=== PATIENT | female | born 1945 | race Caucasian/White ===

== ENCOUNTER → 2016-06-22 | Outpatient (CLI) | payer MEDICARE, BC ==
--- NOTE | 2016-06-22 11:54 | MM ---
Reason for exam: history of breast cancer, conservation therapy. Last mammogram was performed 8 months ago. History: Patient is postmenopausal, has history of breast cancer at age 56, and is nulliparous. Malignant lumpectomy of the right breast, April 26, 2002. Malignant ultrasound-guided core biopsy of the right breast, April 12, 2002. Core biopsy of the right breast. Excisional biopsy of the left breast. Lumpectomy of the left breast. Chemotherapy. Radiation therapy of the left breast. Radiation therapy of the right breast. Took estrogen for 4 years beginning at age 49. Took antineoplastic for 5 years beginning at age 56. Physical Findings: Nurse did not find any significant physical abnormalities on exam. MG 3D Diag Mammo W/Cad AVERY Bilateral CC and MLO view(s) were taken. Prior study comparison: October 22, 2015, left breast MG 3d diag mammo w/cad LT. April 21, 2015, bilateral MG 3d diag mammo w/cad AVERY. The breast tissue is heterogeneously dense. This may lower the sensitivity of mammography. Finding: Architectural distortion in both breasts consistent with known neoplasm/excisional biopsy x 2. These results were verbally communicated with the patient and result sheet given to the patient on 06/22/16. ASSESSMENT: Benign, BI-RAD 2 RECOMMENDATION: Follow-up diagnostic mammogram of both breasts in 1 year.
== END | disposition home or self-care (01) ==
LOC: RADMAMWWP 11:02
PROVIDERS: ATTEND Internal Medicine Geriatric Medicine
DX: R92.2 Inconclusive mammogram (principal)
CPT/HCPCS: G0204; G0279

== ENCOUNTER → 2016-10-03 | Outpatient (CLI) | payer MEDICARE, BC ==
--- NOTE | 2016-10-03 14:38 | MR ---
EXAMINATION TYPE: MR shoulder LT wo con DATE OF EXAM: 10/03/2016 10:22 AM COMPARISON: NONE HISTORY: Left shoulder pain TECHNIQUE: Multiplanar, multisequence imaging of the left shoulder is performed without contrast. FINDINGS: Rotator Cuff: There is fluid signal in the subacromial subdeltoid bursa. Distal acromial spur is pres ent with mass effect on the rotator cuff. Rotator cuff shows increased signal and is attenuated perip herally. Partial full-thickness tear is suspected. Acromioclavicular Joint: Hypertrophic changes present causing some mass effect on the musculotendinou s junction of supraspinatus. Glenohumeral Joint: Intact. Labrum: The labrum appears grossly intact given limitation of non-arthrogram study. Biceps Tendon: The long head of biceps is in normal location within bicipital groove. Bone marrow signal: Small pseudocysts are present within the humeral head. Other: No additional significant abnormality is appreciated. IMPRESSION: Findings suggestive of a partial full-thickness tear of the rotator cuff. Tendinosis changes are pres ent peripherally, correlate for impingement.
== END | disposition home or self-care (01) ==
LOC: RADMRIMAIN 09:41
PROVIDERS: ATTEND Internal Medicine Geriatric Medicine
DX: M67.814 Other specified disorders of tendon, left shoulder (principal); S46.092A Other injury of muscle(s) and tendon(s) of the rotator cuff of left shoulder, initial encounter; Z79.82 Long term (current) use of aspirin

== ENCOUNTER 2016-11-01 08:06 | Day surgery (SDC) | payer MEDICARE, BC ==
[2016-10-25 11:28] VITALS: BMI 26.2
[~2016-11-01 08:06] MED LIST: DEXAMETHASONE SOD PHOSPHATE 10 MG/ML 1 ML VIAL IV ONE; HYDROmorphone 1 MG/ML 1 ML SYRINGE IVP PRN; LACTATED RINGERS 1,000 ML IV SCH; MIDAZOLAM 2 MG/2 ML VIAL IV PRN; ONDANSETRON 4 MG/2 ML VIAL IVP ONE; ceFAZolin 2 GM in SODIUM CHLORIDE 0.9% 100 ML IVPB ONE
[2016-11-01] MEDS ORDERED: LIDOCAINE 1% 20 ML VIAL (10MG/ML) FOR IV START INTRADERMA ONE (08:17)
[2016-11-01] MEDS ORDERED: PROPOFOL 10 MG/ML 20 ML VIAL IV ONE (08:58)
[2016-11-01] MEDS ORDERED: MIDAZOLAM 2 MG/2 ML VIAL ONE (08:58)
[2016-11-01] MEDS ORDERED: LIDOCAINE 1% INJ 10MG/ML (20 ML MDV) ONE (08:58)
[2016-11-01] MEDS ORDERED: LIDOCAINE 2%-EPI 1:100,000 20 ML VIAL ONE (08:58)
[2016-11-01] MEDS ORDERED: ROPIVACAINE 5 MG/ML 30 ML VIAL ONE (08:58)
[2016-11-01] MEDS ORDERED: fentaNYL (PF) 50 MCG/ML 2 ML AMP ONE (08:58)
[2016-11-01] MEDS ORDERED: ePHEDrine 50 MG/ML 1 ML AMP ONE (08:58)
[2016-11-01] MEDS ORDERED: ceFAZolin 1,000 MG in SODIUM CHLORIDE 0.9% 1,000 ML IRRIGATION ONE (10:10)
[2016-11-01] MEDS ORDERED: HYDROmorphone 1 MG/ML 1 ML SYRINGE IVP PRN ×2 (10:29)
[2016-11-01] MEDS ORDERED: SENNOSIDES-DOCUSATE SODIUM 1 EACH TAB PO PRN (10:29)
[2016-11-01] MEDS ORDERED: HYDROcodone/APAP 5-325MG 1 EACH TAB PO PRN (10:29)
[2016-11-01] MEDS ORDERED: ONDANSETRON 4 MG/2 ML VIAL IVP PRN (10:29)
[2016-11-01] MEDS ORDERED: TEMAZEPAM 15 MG CAP PO PRN (10:29)
[2016-11-01] MEDS ORDERED: LACTATED RINGERS 1,000 ML IV SCH (10:30)
[2016-11-01] MEDS ORDERED: SODIUM CHLORIDE 0.9% 500 ML IV ONE ×2 (13:47→15:29)
[2016-11-01] MEDS: ceFAZolin 2 GM in SODIUM CHLORIDE 0.9% 100 ML IVPB SCH ×2 (17:50→23:48)
[2016-11-01] MEDS: SODIUM CHLORIDE 0.9% 1,000 ML IV SCH (17:50)
--- NOTE | 2016-11-01 18:08 | P.CONS ---
History of Present Illness - Reason for Consult Consult date: 11/01/16 Medical management Requesting physician: Cornelius Garcia - Chief Complaint Post left shoulder rotator cuff tear repair, CAD, breast cancer, hypertensi - History of Present Illness 71-year-old female one of my office patient of known for long time with history of bilateral breast cancer post lumpectomy radiation and chemotherapy, history of CAD post angioplasty and stent placement in the past, history of hypertension, hyperlipidemia, lichen plantus who had left shoulder injury few months ago had failed conservative management and physical therapy injection and such. Patient was seen Dr. Garcia and schedule elective left shoulder rotator cuff tear repair which was done today successfully she was admitted to the floor had shoulder sling her medication were resume his stable hemodynamically and pain is under control. Review of Systems Constitutional: Reports fatigue, Denies as per HPI, Denies anorexia, Denies chills, Denies chronic headaches, Denies chronic pain, Denies daytime sleepiness , Denies fever, Denies lethargy, Denies malaise, Denies night sweats, Denies poor appetite, Denies sweats, Denies weakness, Denies weight gain, Denies weight loss Eyes: bilateral as per HPI Ears: bilateral: decreased hearing Ears, nose, mouth and throat: Reports nasal congestion, Reports sinus pain, Reports sinus pressure, Denies as per HPI, Denies ant. neck pain, Denies bleeding gums, Denies dental pain, Denies dysphagia, Denies epistaxis, Denies headache, Denies hoarseness, Denies mouth pain, Denies nasal discharge, Denies neck fullness/pressure, Denies neck lump, Denies nose pain, Denies odynophagia, Denies post-nasal drip, Denies swelling in mouth, Denies swelling in throat, Denies sore throat, Denies vertigo, Denies voice changes Cardiovascular: Reports edema, Reports high blood pressure, Reports leg edema, Reports palpitations, Denies as per HPI, Denies chest pain, Denies claudication , Denies decreased exercise tolerance, Denies dyspnea on exertion, Denies irregular heart beat, Denies lightheadedness, Denies orthopnea, Denies paroxysmal nocturnal dyspnea, Denies phlebitis, Denies rapid heart beat, Denies shortness of breath, Denies syncope Respiratory: Reports congestion, Reports cough, Denies as per HPI, Denies cough with sputum, Denies dyspnea, Denies excessive sputum, Denies hemoptysis, Denies home oxygen, Denies pain, Denies pain on inspiration, Denies pleurisy, Denies respiratory infections, Denies sleep apnea, Denies snoring, Denies wheezing Gastrointestinal: Reports bloating, Reports early satiety, Reports indigestion, Reports nausea, Denies as per HPI, Denies abdominal pain, Denies belching, Denies BRBPR, Denies change in bowel habits, Denies coffee ground emesis, Denies constipation, Denies diarrhea, Denies dyspepsia, Denies excessive gas, Denies heartburn, Denies hematemesis, Denies hematochezia, Denies jaundice, Denies lactose intolerance, Denies loss of appetite, Denies melena, Denies vomiting Genitourinary: Reports urgency, Reports urinary frequency, Denies as per HPI, Denies abnormal vaginal bleeding, Denies decreased libido, Denies difficulty conceiving, Denies difficulty voiding, Denies dysmenorrhea, Denies dyspareunia, Denies dysuria, Denies flank pain, Denies genital sores, Denies hematuria, Denies hot flashes, Denies incomplete emptying, Denies kidney stones, Denies menorrhagia, Denies mixed incontinence, Denies nocturia, Denies pelvic pain, Denies post void dribbling, Denies , Denies prolapse symptoms, Denies stress incontinence, Denies urge incontinence, Denies vaginal discharge, Denies vaginal dryness, Denies vaginal itching, Denies vaginal odor Musculoskeletal: Reports arm numbness/tingling, Reports low back pain, Reports myalgias, Reports neck pain, Denies as per HPI, Denies atrophy, Denies fractures , Denies frequent falls, Denies gait dysfunction, Denies hot joints, Denies leg numbness/tingling, Denies limitation of motion, Denies loss of height, Denies morning stiffness, Denies muscle cramps, Denies muscle weakness, Denies neck stiffness, Denies prior amputations, Denies redness of joints, Denies shooting arm pain, Denies shooting leg pain Musculoskeletal: left: shoulder pain Integumentary: Reports pruritus, Reports rash, Denies as per HPI, Denies acne, Denies boils, Denies brittle nails, Denies change in hair/nails, Denies color changes, Denies darkening of skin, Denies depigmentation, Denies dryness, Denies foot/leg ulcers, Denies growths, Denies hirsutism, Denies lesions, Denies onychomycosis, Denies sores, Denies striae, Denies unusual bruising, Denies wounds Neurological: Denies as per HPI, Denies aphasia, Denies ataxia, Denies balance difficulties, Denies burning pain, Denies change in mentation, Denies change in smell/taste, Denies change in speech, Denies confusion, Denies convulsions, Denies double vision, Denies gait dysfunction, Denies head injury, Denies headaches, Denies hearing difficulties, Denies lack of coordination, Denies loss of vision, Denies memory loss, Denies migraines, Denies motor disturbance, Denies numbness, Denies paralysis, Denies paresthesias, Denies seizures, Denies sensory deficit, Denies spasticity, Denies syncope, Denies tic, Denies tingling , Denies transient paralysis, Denies tremors, Denies vertigo, Denies weakness, Denies visual changes Psychiatric: Reports anxiety, Reports depression, Reports difficulty concentrating, Denies as per HPI, Denies anhedonia, Denies anxiety attacks, Denies change in appetite, Denies change in libido, Denies change in sleep habits, Denies confusion, Denies disorientation, Denies hallucinations, Denies hopelessness, Denies hypersomnia, Denies insomnia, Denies irritability, Denies memory loss, Denies mood swings, Denies paranoia, Denies sleep disturbances, Denies suicidal ideation Endocrine: Reports nocturia, Reports polyuria, Reports proptosis, Denies as per HPI, Denies cold intolerance, Denies deepening of the voice, Denies excessive sweating, Denies excessive thirst, Denies fatigue, Denies flushing, Denies heat intolerance, Denies high blood sugars, Denies increase in ring/shoe/hat size, Denies low blood sugars, Denies palpitations, Denies polydipsia, Denies polyphagia, Denies recent glucocorticoid use, Denies thyroid mass, Denies weight change Hematologic/Lymphatic: Denies as per HPI, Denies easy bleeding, Denies easy bruising, Denies lymphadenopathy, Denies lymphedema, Denies thrombophilia Allergic/Immunologic: Reports allergic rhinitis, Denies as per HPI, Denies anaphylaxis, Denies angioedema, Denies gluten intolerance, Denies persistent infections, Denies seasonal allergies, Denies urticaria, Denies wheezing Past Medical History Past Medical History: Cancer, Hyperlipidemia, Hypertension, Osteoarthritis (OA) , Skin Disorder Additional Past Medical History / Comment(s): lichen planus, breast cancer x 2 History of Any Multi-Drug Resistant Organisms: MRSA Year Discovered:: 2011 MDRO Source:: genitals Past Surgical History: Breast Surgery, Heart Catheterization With Stent, Tonsillectomy Additional Past Surgical History / Comment(s): left breast lumpectomy, rt breast lumpectomy, [place] cataracts Past Anesthesia/Blood Transfusion Reactions: Motion Sickness Additional Past Anesthesia/Blood Transfusion Reaction / Comm: vertigo on and off Date of Last Stent Placement:: 2012 Past Psychological History: No Psychological Hx Reported Smoking Status: Former smoker Past Alcohol Use History: Rare Additional Past Alcohol Use History / Comment(s): quit smoking 15 yrs ago, smoked for 45 yrs, 1 PPD Past Drug Use History: None Reported - Past Family History Father Family Medical History: Cancer Brother(s) Family Medical History: Cancer Sister(s) Family Medical History: Cancer Medications and Allergies Home Medications Medication Instructions Recorded Confirmed Type ALPRAZolam [Xanax] 0.25 mg PO HS 10/25/16 11/01/16 History Acetaminophen 1,000 mg PO BID 10/25/16 11/01/16 History Aspirin [Adult Low Dose Aspirin EC] 81 mg PO DAILY 10/25/16 11/01/16 History Baclofen 10 mg PO HS 10/25/16 11/01/16 History Candesartan Cilexetil [Atacand] 32 mg PO DAILY 10/25/16 11/01/16 History Carboxymethylcellulose Sodium 1 drop BOTH EYES BID PRN 10/25/16 11/01/16 History [Refresh Tears] Citalopram Hydrobromide 20 mg PO DAILY 10/25/16 11/01/16 History [Citalopram HBr] Ezetimibe [Zetia] 10 mg PO HS 10/25/16 11/01/16 History Multivitamins, Thera [Multivitamin 1 tab PO DAILY 10/25/16 11/01/16 History (formulary)] Omeprazole [PriLOSEC] 40 mg PO DAILY 10/25/16 11/01/16 History Simvastatin [Zocor] 40 mg PO Q48H 10/25/16 11/01/16 History Ubidecarenone [Co Q-10] 100 mg PO DAILY 10/25/16 11/01/16 History Vitamin E (Dl,Tocopheryl Acet) 400 unit PO DAILY 10/25/16 11/01/16 History [Vitamin E] amLODIPine [Norvasc] 10 mg PO DAILY 10/25/16 11/01/16 History traZODone HCL 50 mg PO HS 10/25/16 11/01/16 History Allergies Allergy/AdvReac Type Severity Reaction Status Date / Time No Known Allergies Allergy Verified 11/01/16 08:09 Physical Exam Vitals: Vital Signs Temp Pulse Pulse Resp BP BP Pulse Ox 11/01/16 11:08 82 16 102/54 95 11/01/16 10:53 79 16 100/49 94 L 11/01/16 10:38 82 16 108/58 95 11/01/16 10:23 97 F L 93 16 159/68 94 L 11/01/16 08:16 97.8 F 62 16 127/64 93 L Intake and Output 10/31/16 11/01/16 11/01/16 22:59 06:59 14:59 Intake Total 1151 Output Total 5 Balance 1146 Intake: IV 1151 Output: Estimated Blood Loss 5 Other: Voiding Method Toilet # Voids 1 - Constitutional General appearance: no average body habitus, no cooperative, disheveled, no mild distress, no morbidly obese, no acute distress, no obese, no severe distress, no thin - EENT Eyes: no abnormal pupil, no anicteric sclerae, no disc margins sharp, no edentulous, no EOMI, no PERRLA, no fundus normal, no photophobia, no dentition normal, no poor dentition, no ptosis, no scleral icterus, normal appearance ENT: no hard of hearing, no hearing grossly normal, no NA/AT, normal oropharynx , no other, no pharyngeal erythema, no thrush, no tonsillar exudates, no tonsillar swelling Ears: bilateral: normal - Neck Neck: no lymphadenopathy, normal ROM, no other, no rigidity, no stridor, no thyromegaly Carotids: bilateral: upstroke normal Thyroid: bilateral: normal size - Respiratory Respiratory: bilateral: CTA - Cardiovascular Rhythm: regular Heart sounds: normal: S1, S2 Abnormal Heart Sounds: systolic murmur - Gastrointestinal General gastrointestinal: no absent bowel sounds, no decreased bowel sounds, no distended, no hepatomegaly, no hyperactive bowel sounds, normal bowel sounds, no organomegaly, no rigid, no scaphoid, soft, no splenomegaly, no tenderness, no umbilical hernia, no ventral hernia - Integumentary Integumentary: no calor, no cellulitis, no cyanotic, no decreased turgor, no flushed, no jaundiced, normal, no normal turgor, pale, no rash, no ulcer - Neurologic Neurologic: CNII-XII intact - Musculoskeletal Musculoskeletal: gait normal, generalized weakness - Psychiatric Psychiatric: A&O x's 3, appropriate affect Assessment and Plan Plan: 1 post left shoulder rotator cuff tear repair: Patient is stable medically resume home meds will watch patient with dynamic status, watch her urine output. 2 CAD no chest pain or angina has been doing well with current medication continue Zocor amlodipine and Atacand. 3 Hyperlipidemia: Has been on Zocor 40 mg a day and Zetia 10 mg daily. 4 History of breast cancer bilateral has been in remission in the last few years. 5 hypertension: Continue Atacand and amlodipine. 6 Chronic depression: Has been on Cipro and Lupron 20 mg daily. 7 insomnia: Has been on trazodone 50 mg daily at bedtime. 8 GERD/GI prophylaxis: Patient has been on omeprazole 40 mg daily. 9 DVT prophylaxis: Patient will continue Venodyne boots and knee-high INESSA hose along with early mobilization. CODE STATUS: Full code. Next Dr. Garcia thank you much for the consult if I can be any further help to please let me know.
[2016-11-01] MEDS ORDERED: ACETAMINOPHEN TAB 500 MG TAB PO PRN (20:39)
[2016-11-01] MEDS ORDERED: ARTIFICIAL TEARS-HYPROMELLOSE DROPS 15 ML BTL BOTH EYES PRN (20:39)
[2016-11-01] MEDS ORDERED: EZETIMIBE 10 MG TAB PO SCH (21:00)
[2016-11-01] MEDS ORDERED: BACLOFEN 10 MG TAB PO SCH (21:00)
[2016-11-01] MEDS ORDERED: traZODone HCL 50 MG TAB PO SCH (21:00)
[2016-11-01] MEDS ORDERED: ALPRAZolam 0.25 MG TAB PO SCH (21:00)
[2016-11-01] MEDS: HYDROcodone/APAP 5-325MG 1 EACH TAB PO PRN (21:27)
[2016-11-01] MEDS: hydrOXYzine PAMOATE 25 MG CAP PO PRN (21:27)
[2016-11-01] MEDS: HYDROmorphone 1 MG/ML 1 ML SYRINGE IVP PRN (23:47)
[2016-11-02] MEDS: SODIUM CHLORIDE 0.9% 1,000 ML IV SCH (03:54)
[2016-11-02] MEDS: HYDROmorphone 1 MG/ML 1 ML SYRINGE IVP PRN (03:55)
[2016-11-02] MEDS: HYDROcodone/APAP 5-325MG 1 EACH TAB PO PRN ×2 (05:42→11:41)
[2016-11-02] MEDS: hydrOXYzine PAMOATE 25 MG CAP PO PRN (05:42)
[2016-11-02] MEDS ORDERED: PANTOPRAZOLE 40 MG TABLET PO SCH (07:30)
[2016-11-02 07:32] VITALS: RESP 17
--- NOTE | 2016-11-02 08:26 | P.DS ---
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 The patient presented to the orthopedic office for evaluation. After discussion and consideration patient elects to proceed with a rotator cuff repair. The patient is seen preoperatively by her primary care doctor and cleared for surgery. Patient is admitted to observation at [facility] on 11/01/2016 for left shoulder rotator cuff repair with distal clavicle excision and acromioplasty. The procedures performed without complication or sequelae. The patient is doing well postoperatively. Labs and vital signs are stable on day of discharge. On day of discharge patient's shoulder incision is healing well. There is minimal erythema. There is no drainage noted at this time. There is minimal soft tissue swelling to the right upper extremity. Patient has full hand, wrist , and elbow motion without difficulty or pain. Neurovascular status to the left upper extremity is intact. Patient is discharged to home in good condition. Patient Condition at Discharge: Stable Plan - Discharge Summary New Discharge Prescriptions: New Cephalexin [Keflex] 500 mg PO Q8HR #15 cap HYDROcodone/APAP 7.5-325MG [[employer] 7.5-325] 1 - 2 tab PO Q4-6H PRN #90 tab PRN Reason: Pain Sennosides-Docusate Sodium [Senokot-S] 2 tab PO DAILY #30 tablet No Action Vitamin E (Dl,Tocopheryl Acet) [Vitamin E] 400 unit PO DAILY Ubidecarenone [Co Q-10] 100 mg PO DAILY Multivitamins, Thera [Multivitamin (formulary)] 1 tab PO DAILY Aspirin [Adult Low Dose Aspirin EC] 81 mg PO DAILY traZODone HCL 50 mg PO HS Ezetimibe [Zetia] 10 mg PO HS Simvastatin [Zocor] 40 mg PO Q48H Omeprazole [PriLOSEC] 40 mg PO DAILY Carboxymethylcellulose Sodium [Refresh Tears] 1 drop BOTH EYES BID PRN PRN Reason: dry eyes Citalopram Hydrobromide [Citalopram HBr] 20 mg PO DAILY Candesartan Cilexetil [Atacand] 32 mg PO DAILY amLODIPine [Norvasc] 10 mg PO DAILY Baclofen 10 mg PO HS ALPRAZolam [Xanax] 0.25 mg PO HS Acetaminophen 1,000 mg PO BID Discharge Medication List ALPRAZolam [Xanax] 0.25 mg PO HS 10/25/16 [History] Acetaminophen 1,000 mg PO BID 10/25/16 [History] Aspirin [Adult Low Dose Aspirin EC] 81 mg PO DAILY 10/25/16 [History] Baclofen 10 mg PO HS 10/25/16 [History] Candesartan Cilexetil [Atacand] 32 mg PO DAILY 10/25/16 [History] Carboxymethylcellulose Sodium [Refresh Tears] 1 drop BOTH EYES BID PRN 10/25/16 [History] Citalopram Hydrobromide [Citalopram HBr] 20 mg PO DAILY 10/25/16 [History] Ezetimibe [Zetia] 10 mg PO HS 10/25/16 [History] Multivitamins, Thera [Multivitamin (formulary)] 1 tab PO DAILY 10/25/16 [History ] Omeprazole [PriLOSEC] 40 mg PO DAILY 10/25/16 [History] Simvastatin [Zocor] 40 mg PO Q48H 10/25/16 [History] Ubidecarenone [Co Q-10] 100 mg PO DAILY 10/25/16 [History] Vitamin E (Dl,Tocopheryl Acet) [Vitamin E] 400 unit PO DAILY 10/25/16 [History] amLODIPine [Norvasc] 10 mg PO DAILY 10/25/16 [History] traZODone HCL 50 mg PO HS 10/25/16 [History] Cephalexin [Keflex] 500 mg PO Q8HR #15 cap 11/01/16 [Rx] HYDROcodone/APAP 7.5-325MG [[employer] 7.5-325] 1 - 2 tab PO Q4-6H PRN #90 tab [Rx] Sennosides-Docusate Sodium [Senokot-S] 2 tab PO DAILY #30 tablet 11/01/16 [Rx] Follow up Appointment(s)/Referral(s): Cornelius Garcia DO [Doctor of Osteopathic Medicine] - 2 Weeks Activity/Diet/Wound Care/Special Instructions: Keep incision clean and dry Change dressing daily May shower in 3 days if no drainage from incision Keep arm sling/abductor pillow in place except when bathing Follow up with Dr. Garcia in 2 weeks. Call [facility] with any questions or concerns. [phone] Discharge Disposition: HOME SELF-CARE
[2016-11-02] MEDS ORDERED: ASPIRIN 81 MG CHEW PO SCH (09:00)
[2016-11-02] MEDS ORDERED: amLODIPine 10 MG TAB PO SCH (09:00)
[2016-11-02] MEDS ORDERED: MULTIVITAMINS, THERA 1 EACH TAB PO SCH (09:00)
[2016-11-02] MEDS ORDERED: CITALOPRAM HYDROBROMIDE 20 MG TAB PO SCH (09:00)
[2016-11-02] MEDS ORDERED: ATORVASTATIN 20 MG TAB PO SCH (09:00)
[2016-11-02] MEDS ORDERED: LOSARTAN 50 MG TAB PO SCH (09:00)
[2016-11-02] MEDS ORDERED: NON-FORMULARY DRUG (Ubidecarenone [Co Q-10] 100 MG) PO SCH (09:00)
[2016-11-02 11:43] VITALS: BP 104/55; PULSE 60; TEMP 97.9
--- NOTE | 2016-11-02 14:48 | P.PN ---
Subjective 71-year-old female one of my office patient of known for long time with history of bilateral breast cancer post lumpectomy radiation and chemotherapy, history of CAD post angioplasty and stent placement in the past, history of hypertension, hyperlipidemia, lichen plantus who had left shoulder injury few months ago had failed conservative management and physical therapy injection and such. Patient was seen Dr. Garcia and schedule elective left shoulder rotator cuff tear repair which was done today successfully she was admitted to the floor had shoulder sling her medication were resume his stable hemodynamically and pain is under control. 11/02: Patient is being prepared for discharge home today in stable condition. She has had no postop complications. Objective - Vital Signs Vital signs: Vital Signs Temp 97.9 F 11/02/16 11:42 Pulse 60 11/02/16 11:42 Resp 17 11/02/16 07:00 BP 104/55 11/02/16 11:42 Pulse Ox 93 L 11/02/16 11:42 Intake & Output 11/01/16 11/02/16 11/02/16 18:59 06:59 18:59 Intake Total 1851 1000 600 Output Total 1505 Balance 346 1000 600 Intake: IV 1151 Intake, IV Titration 700 800 Amount Lactated Ringers 1,000 ml 200 @ 100 mls/hr IV .Q10H CAROLIN Rx#:[id number] Sodium Chloride 0.9% 1, 800 000 ml @ 100 mls/hr IV . Q10H CAROLIN Rx#:[id number] Sodium Chloride 0.9% 500 500 ml @ 999 mls/hr IV .Q31M ONE Rx#:[id number] Oral 200 600 Output: Urine 1500 Estimated Blood Loss 5 Other: Voiding Method Toilet Toilet Toilet # Voids 2 2 1 - Exam General appearance: no average body habitus, no cooperative, disheveled, no mild distress, no morbidly obese, no acute distress, no obese, no severe distress, no thin - EENT Eyes: no abnormal pupil, no anicteric sclerae, no disc margins sharp, no edentulous, no EOMI, no PERRLA, no fundus normal, no photophobia, no dentition normal, no poor dentition, no ptosis, no scleral icterus, normal appearance ENT: no hard of hearing, no hearing grossly normal, no NA/AT, normal oropharynx , no other, no pharyngeal erythema, no thrush, no tonsillar exudates, no tonsillar swelling Ears: bilateral: normal - Neck Neck: no lymphadenopathy, normal ROM, no other, no rigidity, no stridor, no thyromegaly Carotids: bilateral: upstroke normal Thyroid: bilateral: normal size - Respiratory Respiratory: bilateral: CTA - Cardiovascular Rhythm: regular Heart sounds: normal: S1, S2 Abnormal Heart Sounds: systolic murmur - Gastrointestinal General gastrointestinal: no absent bowel sounds, no decreased bowel sounds, no distended, no hepatomegaly, no hyperactive bowel sounds, normal bowel sounds, no organomegaly, no rigid, no scaphoid, soft, no splenomegaly, no tenderness, no umbilical hernia, no ventral hernia - Integumentary Integumentary: no calor, no cellulitis, no cyanotic, no decreased turgor, no flushed, no jaundiced, normal, no normal turgor, pale, no rash, no ulcer - Neurologic Neurologic: CNII-XII intact - Musculoskeletal Musculoskeletal: gait normal, generalized weakness - Psychiatric Psychiatric: A&O x's 3, appropriate affect Assessment and Plan Plan: 1 post left shoulder rotator cuff tear repair: Patient is stable medically resume home meds will watch patient with dynamic status, watch her urine output. 2 CAD no chest pain or angina has been doing well with current medication continue Zocor amlodipine and Atacand. 3 Hyperlipidemia: Has been on Zocor 40 mg a day and Zetia 10 mg daily. 4 History of breast cancer bilateral has been in remission in the last few years. 5 hypertension: Continue Atacand and amlodipine. 6 Chronic depression: Has been on Cipro and Lupron 20 mg daily. 7 insomnia: Has been on trazodone 50 mg daily at bedtime. 8 GERD/GI prophylaxis: Patient has been on omeprazole 40 mg daily. 9 DVT prophylaxis: Patient will continue Venodyne boots and knee-high INESSA hose along with early mobilization. CODE STATUS: Full code. Discharge plan: Return home Impression and plan of care have been directed as dictated by the signing physician. Masha Smith nurse practitioner acting as scribe for signing physician.
--- NOTE | 2016-11-03 20:08 | OP ---
DATE OF SERVICE: 11/01/2016 SURGEON: MARKIE MUÑOZ DO BLACK TOP SPREADER MACHINE OPERATOR: Sarah Judd PA-C PREOPERATIVE DIAGNOSIS: Adhesive capsulitis, left shoulder, with rotator cuff tear. POSTOPERATIVE DIAGNOSIS: Adhesive capsulitis, left shoulder, with rotator cuff tear. OPERATION: Resection distal left clavicle, decompression acromioplasty, and rotator cuff repair. ANESTHESIA: ESTIMATED BLOOD LOSS: SPECIMENS REMOVED: COMPLICATIONS: OPERATIVE FINDINGS: DESCRIPTION OF PROCEDURE: Patient was taken to the operative suite, placed in supine position. Regional blocking anesthesia was performed by Department of Anesthesia. The patient was placed in beach chair position, appropriately padded and secured. A Betadine prep was carried out. Sterile drapes were applied in the usual manner. The shoulder was then taken through a gentle range of motion. Anterolateral incision was developed over the acromion. Sharp dissection was carried out through the subcutaneous tissue. The superior acromioclavicular ligament was identified and dissected. Additional 1 cm of clavicle was excised with a bone saw. The anterior deltoid muscle was dissected along the musculotendinous junction. The coracoacromial ligament was identified and dissected. An anterolateral decompression acromioplasty was performed. The acromion was shaped with a bone saw. The Arthrex anchor screw was then prepared with bone awl for positioning and the bone tapped. Fiber Nazario utilized in repairing the rotator cuff. Area was irrigated copiously. The deltoid was then reapproximated back into the acromion with #1 Ethibond suture. The deep fascia was approximated with #1 Vicryl suture in running fashion. The subcutaneous tissue was reapproximated with 3-0 Vicryl suture in interrupted fashion. Skin was approximated with 3-0 Quill in subcuticular fashion. The incision was sealed with Dermabond. Sterile dressing was applied. Patient was placed in an abduction pillow splint. She was transferred to the recovery room in satisfactory postoperative condition. GROSS PATHOLOGY: There was evidence of rotator cuff impingement with rotator cuff tear. [facility]
== END 2016-11-02 14:37 | disposition home or self-care (01) ==
LOC: OR 08:06 → 3SUR 10:19 → OR 11-02 14:37
PROVIDERS: ATTEND Orthopaedic Surgery
DX: M75.102 Unspecified rotator cuff tear or rupture of left shoulder, not specified as traumatic (principal); M75.02 Adhesive capsulitis of left shoulder; M75.42 Impingement syndrome of left shoulder; I25.10 Atherosclerotic heart disease of native coronary artery without angina pectoris; I10 Essential (primary) hypertension; E78.5 Hyperlipidemia, unspecified; L43.9 Lichen planus, unspecified; G47.00 Insomnia, unspecified; M19.90 Unspecified osteoarthritis, unspecified site; K21.9 Gastro-esophageal reflux disease without esophagitis; E78.00 Pure hypercholesterolemia, unspecified; N39.41 Urge incontinence; H81.399 Other peripheral vertigo, unspecified ear; F32.9 Major depressive disorder, single episode, unspecified; Z95.5 Presence of coronary angioplasty implant and graft; Z85.3 Personal history of malignant neoplasm of breast; Z92.21 Personal history of antineoplastic chemotherapy; Z92.3 Personal history of irradiation; Z87.891 Personal history of nicotine dependence; Z86.14 Personal history of Methicillin resistant Staphylococcus aureus infection; Z79.82 Long term (current) use of aspirin; Z79.899 Other long term (current) drug therapy
CPT/HCPCS: 23410; 23120; 94760; J2250; J0690 ×2; J2001; J3010; J1170 ×2; J2795; J2704

== ENCOUNTER → 2017-06-27 | Outpatient (CLI) | payer MEDICARE, BC ==
--- NOTE | 2017-06-27 11:13 | MM ---
Reason for exam: additional evaluation requested from prior study. Last mammogram was performed 1 year ago. History: Patient is postmenopausal, has history of breast cancer at age 56, and is nulliparous. Malignant lumpectomy of the right breast, April 26, 2002. Malignant ultrasound-guided core biopsy of the right breast, April 12, 2002. Core biopsy of the right breast. Excisional biopsy of the left breast. Lumpectomy of the left breast. Chemotherapy. Radiation therapy of the left breast. Radiation therapy of the right breast. Took estrogen for 4 years beginning at age 49. Took antineoplastic for 5 years beginning at age 56. Physical Findings: Nurse did not find any significant physical abnormalities on exam. MG 3D Diag Mammo W/Cad AVERY Bilateral CC and MLO view(s) were taken. Prior study comparison: June 22, 2016, bilateral MG 3d diag mammo w/cad AVERY. October 22, 2015, left breast MG 3d diag mammo w/cad LT. The breast tissue is extremely dense which could obscure a lesion on mammography. No suspicious calcifications or masses are seen. Stable post operative distortion bilaterally. No significant new findings when compared with previous films. These results were verbally communicated with the patient and result sheet given to the patient on 06/27/17. ASSESSMENT: Benign, BI-RAD 2 RECOMMENDATION: Follow-up diagnostic mammogram of both breasts in 1 year.
== END | disposition home or self-care (01) ==
LOC: RADMAMWWP 10:17
PROVIDERS: ATTEND Internal Medicine Geriatric Medicine
DX: C50.919 Malignant neoplasm of unspecified site of unspecified female breast (principal)
CPT/HCPCS: 77066; G0279

== ENCOUNTER → 2017-07-18 | Outpatient (CLI) | payer MEDICARE, BC ==
--- NOTE | 2017-07-18 12:30 | US ---
EXAMINATION TYPE: US pelvic complete DATE OF EXAM: 07/18/2017 COMPARISON: NONE CLINICAL HISTORY: R10.2 PELVIC PAIN. Left pelvic pain, tubal ligation TECHNIQUE: Transabdominal (TA) Date of LMP: unknown EXAM MEASUREMENTS: Uterus: 5.7 x 1.8 x 3.6 cm Endometrial Stripe: 0.4 cm Right Ovary: 2.9 x 1.4 x 2.1 cm Left Ovary: unable to visualize patient declining TV exam at this time Technical limitations due to overlying bowel content 1. Uterus: Anteverted heterogeneous 2. Endometrium: appears wnl 3. Right Ovary: cystic area = 1.5 x 1.3 x 1.3cm 4. Left Ovary: unable to visualize 5. Bilateral Adnexa: appears wnl 6. Posterior cul-de-sac: wnl Anteverted heterogeneous uterus is seen. Endometrium is not suspiciously thickened. IMPRESSION: A 1.5 cm simple appearing cyst is abnormal finding in postmenopausal female. Neoplasm can not be excluded almost certainly would be benign. Advise and minimal annual ultrasound surveillance. Suboptimal study with patient refusing transvaginal investigation.
== END | disposition home or self-care (01) ==
LOC: RADUSWWP 10:19
PROVIDERS: ATTEND Obstetrics & Gynecology
DX: N83.201 Unspecified ovarian cyst, right side (principal); Z78.0 Asymptomatic menopausal state
CPT/HCPCS: 76856

== ENCOUNTER → 2017-11-07 | Outpatient (CLI) | payer MEDICARE, BC ==
--- NOTE | 2017-11-07 15:08 | BD ---
EXAMINATION TYPE: Axial Bone Density DATE OF EXAM: 11/07/2017 COMPARISON: 10.22.2015 CLINICAL HISTORY: 72 YR OLD FEMALE.....ICD-10 CODE: M85.9 KNOWN OSTEOPENIA Height: 64 Weight: 147 FRAX RISK QUESTIONS: Family History (Parent hip fracture): NO HIP BREAK, HUMERUS History of Fracture in Adulthood: YES Current Tobacco Use: NO RISK FACTORS HISTORY OF: FRACTURES OF: LT SHOULDER, 2017, FEW TOES > AGE 50 Family History of Osteoporosis: YES, HER MOTHER WITH HUMERUS FX BUT NO HIP FX Active: YES Diet low in dairy products/other sources of calcium: NO...JUST NO MILK Postmenopausal woman: YES, AT AGE 51 MEDICATIONS: Additional Medications: HX OF CHEMO AND RADIATION, BP MEDS, CELEXA, XANAX, REFLUX MEDS, STATINS FOR C HOLESTEROL, Additional History: HX OF BILAT BREAST CANCER, OSTEOARTHRITIS EXAM MEASUREMENTS: Bone mineral densitometry was performed using the [employer] System. Bone mineral density as measured about the Lumbar spine is: ----- L1-L4(G/cm2): 1.016 T Score Values are as follows: ----- L1: -1.6 ----- L2: -1.9 ----- L3: -1.2 ----- L4: -1.1 ----- L1-L4: -1.4 Bone mineral density has: Increased 0.7% since study of: 10.22.2015 Bone mineral density about the R hip (g/cm2): 0.805 Bone mineral density about the L hip (g/cm2): 0.834 T Score values are as follows: -----R Neck: -1.9 -----L Neck: -2.1 -----R Total: -1.6 -----L Total: -1.4 Bone mineral density has: Decreased -1.0% since study of: 10.22.2015 FRAX%S: THERE IS A 20.4% CHANCE OF A MAJOR OSTEOPOROTIC FX AND A 4.7% FOR A HIP FX......PROBABILIT Y OF FX IN 10 YRS TIME IMPRESSION: Osteopenia NOTE: T-SCORE=SD OF THE YOUNG ADULT MEAN.
== END | disposition home or self-care (01) ==
LOC: RADBDWWP 10:40
PROVIDERS: ATTEND Obstetrics & Gynecology
DX: M85.80 Other specified disorders of bone density and structure, unspecified site (principal); M89.9 Disorder of bone, unspecified
CPT/HCPCS: 77080

== ENCOUNTER → 2018-01-26 | Outpatient (CLI) | payer MEDICARE, BC ==
--- NOTE | 2018-01-26 13:32 | XR ---
Lumbar spine HISTORY: Low back pain 3 views of the lumbar spine There is multilevel spondylosis. Some loss of disc height present at the intervertebral levels L3-4, L4-5. Lumbar vertebral bodies show preserved height. Bone mineralization is decreased. Vascular calci fications are noted incidentally. Sclerosis present in the posterior elements lumbosacral junction co mpatible with facet arthropathy. IMPRESSION: Degenerative disc disease and facet arthropathy.
--- NOTE | 2018-01-26 13:36 | XR ---
Thoracic spine HISTORY: Back pain 3 views of the thoracic spine Correlation to prior exam 07/29/2009 There is a slight spinal curvature as on prior exam. Thoracic vertebral bodies show preserved height, alignment, and bone mineralization is reduced. Disc spaces are maintained. There is mild multilevel spondylosis. The aorta is dense. Degenerative disc changes noted incidentally within the thoracic spi ne. IMPRESSION: Thoracic spondylosis, osteopenia. Additional findings above.
== END | disposition home or self-care (01) ==
LOC: RADXRMAIN 10:44
PROVIDERS: ATTEND Internal Medicine Geriatric Medicine
DX: M47.814 Spondylosis without myelopathy or radiculopathy, thoracic region (principal); M85.88 Other specified disorders of bone density and structure, other site; M51.36 Other intervertebral disc degeneration, lumbar region; M48.8X6 Other specified spondylopathies, lumbar region
CPT/HCPCS: 72072; 72100

== ENCOUNTER → 2018-08-15 | Outpatient (CLI) | payer MEDICARE, BC ==
--- NOTE | 2018-08-15 12:05 | US ---
EXAMINATION TYPE: US pelvis complete transvag DATE OF EXAM: 08/15/2018 COMPARISON: US dated 07/18/2017 CLINICAL HISTORY: N83.0 Follicular cyst of ovary. F/U previous US, right ovary/ Pt states history of breast CA at age 49's TECHNIQUE: Transvaginal (TV) and Transabdominal (TA) . Transabdominal sonographic images of the pel vis were acquired. Transvaginal sonographic images were medically necessary to better assess the fol lowing anatomy: Uterus and ovaries Date of LMP: age 51 EXAM MEASUREMENTS: Uterus: 5.4 x 1.6 x 2.3 cm Endometrial Stripe: 0.3 cm Right Ovary: 2.3 x 1.5 x 2.0 cm Left Ovary: 2.0 x 1.9 x 1.4 cm 1. Uterus: Anteverted Heterogeneous, appeared wnl for post menopausal 2. Endometrium: wnl 3. Right Ovary: cyst= 1.9 x 1.3 x 1.3 cm as seen on previous 4. Left Ovary: only visualized TA, cyst= 1.6 x 1.2 x 0.8 cm 5. Bilateral Adnexa: wnl 6. Posterior cul-de-sac: wnl IMPRESSION: 1.9 cm simple appearing right ovarian cyst demonstrates minimal increased size in compari son to the prior of 07/18/2017. Continued surveillance is recommended for lesions of this size. Left o varian cyst is also now seen, new from the prior measuring 1.6 cm.
== END | disposition home or self-care (01) ==
LOC: RADUSWWP 10:30
PROVIDERS: ATTEND Obstetrics & Gynecology
DX: N83.01 Follicular cyst of right ovary (principal); N83.02 Follicular cyst of left ovary
CPT/HCPCS: 76830; 76856

== ENCOUNTER → 2018-10-08 | Outpatient (CLI) | payer MEDICARE, BC ==
--- NOTE | 2018-10-08 11:12 | US ---
EXAMINATION TYPE: US abdomen complete DATE OF EXAM: 10/08/2018 COMPARISON: NONE CLINICAL HISTORY: R10.84 Abdominal Pain. Intermittent RUQ pain x 6 months EXAM MEASUREMENTS: Liver Length: 12.4 cm Gallbladder Wall: 0.2 cm CBD: 0.3 cm Spleen: 8.5 cm Right Kidney: 8.0 x 4.3 x 4.9 cm Left Kidney: 8.8 x 4.7 x 5.0 cm Pancreas: visualized portions wnl, limited by overlying midline bowel gas Liver: wnl Gallbladder: echogenic foci within wall with ringdown artifact Evidence for sonographic Garzon's sign: no CBD: wnl Spleen: visualized portions wnl, limited by overlying bowel gas Right Kidney: 3.1 x 3.3 x 2.7cm cystic area inferior pole Left Kidney: wnl Upper IVC: wnl Abd Aorta: wnl LUQ: 4.9 x 4.1 x 3.1cm hypoechoic area seen within LUQ superior to left kidney, appears separate fr om left kidney The liver is homogenous. The intrahepatic portion of the IVC and proximal abdominal aorta are within normal limits. There is no evidence of cholelithiasis. Common bile duct is unremarkable. The visu alized portions of the pancreas are homogenous. The spleen is unremarkable. Kidneys are symmetric a nd free of hydronephrosis. IMPRESSION: 1.LUQ: 4.9 x 4.1 x 3.1cm hypoechoic area seen within LUQ superior to left kidney, appears separate from left kidney 2. Cystic area lower pole right kidney.
== END | disposition home or self-care (01) ==
LOC: RADUSWWP 10:20
PROVIDERS: ATTEND Internal Medicine Geriatric Medicine
DX: N28.1 Cyst of kidney, acquired (principal); R93.5 Abnormal findings on diagnostic imaging of other abdominal regions, including retroperitoneum
CPT/HCPCS: 76700

== ENCOUNTER → 2019-04-26 | Outpatient (CLI) | payer MEDICARE, BC ==
--- NOTE | 2019-04-26 12:43 | US ---
EXAMINATION TYPE: US kidneys/renal and bladder DATE OF EXAM: 04/26/2019 COMPARISON: US CLINICAL HISTORY: R94.4 abnormal results. Abnormal renal labs EXAM MEASUREMENTS: Right Kidney: 8.6 x 4.9 x 4.4 cm Left Kidney: 8.5 x 5.2 x 4.8 cm Right Kidney: Cyst lower pole= 3.7 x 3.4 x 2.5 cm Left Kidney: Appeared wnl Bladder: wnl Bilateral Jets seen: Yes Superior to left kidney separate from the left kidney there appears to be a solid lesion ?adrenal i n nature= 5.1 x 3.9 x 4.7 cm There is no evidence for hydronephrosis at this point in time. No nephrolithiasis is seen. The urin renato bladder is anechoic. Bilateral ureteral jets are seen. IMPRESSION: 1. Solid mass superior to the left kidney may reflect mass of adrenal origin. Correlate with CT. 2. Right renal cystic change.
== END | disposition home or self-care (01) ==
LOC: RADUSWWP 12:11
PROVIDERS: ATTEND Internal Medicine Geriatric Medicine
DX: N28.89 Other specified disorders of kidney and ureter (principal)
CPT/HCPCS: 76770

== ENCOUNTER → 2019-05-21 | Outpatient (CLI) | payer MEDICARE, BC ==
--- NOTE | 2019-05-21 15:17 | CT ---
EXAMINATION TYPE: CT abdomen w con DATE OF EXAM: 05/21/2019 HISTORY: renal cysts, recent abnormal CT. CT DLP: 716mGycm Automated Exposure Control for Dose Reduction was Utilized. CONTRAST: CT scan of the abdomen is performed with oral and with IV Contrast, patient injected with 80cc mL of Isovue 300. COMPARISON: Renal ultrasound April 26, 2019. Complete abdominal CT from October 08, 2018 FINDINGS: LUNG BASES: There are posterior dependent thin-walled cysts in both lung bases with scattered mild-to -moderate parenchymal scarring. Coronary artery calcification is present which is noted marked underl cipriano coronary artery disease distal RCA distribution. LIVER/GB: Gallbladder has dependent density suspicious for small stones towards the fundus is not as well-seen on prior ultrasound. There is 5 mm calcification axial image 26 could reflect dependent theodore cified gallstone or calcification within the gallbladder wall. PANCREAS: No significant abnormality is seen. SPLEEN: No significant abnormality is seen. ADRENALS: No significant abnormality is seen. KIDNEYS: There is symmetric cortical medullary uptake and excretion from both kidneys without hydrone phrosis seen bilaterally. There is thin walled 3.3 cm cyst anteriorly midpole level right kidney irene ures 33 series 7 corresponds to prior ultrasounds. Corresponding to recent ultrasound rounded area of concern correlates with lobulated contour to the spleen filling the left suprarenal space between ad renal gland and kidney. No worrisome solid or cystic mass at this levels identified. This is seen bes t on axial image 24 contiguous extension from spleen is noted best coronal image 54. BOWEL: Oral contrast reaches level of cecum. No suspicious small or large bowel dilatation. Mild prom inence of fecal material throughout the proximal and transverse colon. LYMPH NODES: No greater than 1cm abdominal lymph nodes are appreciated. Scattered prominent but subce ntimeter retroperitoneal lymph nodes are present. OSSEOUS STRUCTURES: Jade-mp-[id number] disc space narrowing L4-L5 level. Mild Facet arthropathy lower l umbar spine. OTHER: Moderate calcified plaque of the aorta extends into iliac branch vessels. IMPRESSION: No suspicious intra-abdominal mass. There is lobulated appearance to spleen mimicking a m ass superior to the left kidney when correlating with recent ultrasound.
== END | disposition home or self-care (01) ==
LOC: RADCTMAIN 12:59
PROVIDERS: ATTEND Internal Medicine Geriatric Medicine
DX: N28.1 Cyst of kidney, acquired (principal); I12.9 Hypertensive chronic kidney disease with stage 1 through stage 4 chronic kidney disease, or unspecified chronic kidney disease; N18.9 Chronic kidney disease, unspecified
CPT/HCPCS: 82565; 84520; 74160; 36415; Q9967

== ENCOUNTER → 2019-08-19 | Outpatient (CLI) | payer MEDICARE, BC | END | disposition home or self-care (01) | CPT/HCPCS: 76856 ==

== ENCOUNTER → 2019-11-21 | Outpatient (CLI) | payer MEDICARE, BC ==
--- NOTE | 2019-11-21 15:11 | CT ---
EXAMINATION TYPE: CT chest w con DATE OF EXAM: 11/21/2019 COMPARISON: NONE HISTORY: persistent cough. CT DLP: 146.3 mGycm. Automated Exposure Control for Dose Reduction was Utilized. TECHNIQUE: CT scan of the thorax is performed following with IV Contrast, patient injected with 100 mL of Isovue 300. FINDINGS: LUNGS: Fairly moderate underlying emphysematous change is felt present in the upper lungs. In additio n there are scattered thin-walled cysts bilaterally greatest in the periphery of the lower lungs. The re is additional peripheral reticulation and fibrosis greatest in the bilateral lower lungs near diap hragm. There is subpleural 4 mm nodule in the right middle lobe axial image 39. No suspicious focal c onsolidation or groundglass opacity. No pleural effusion or pneumothorax noted. Tracheobronchial tree is patent. MEDIASTINUM: There are no greater than 1 cm hilar or mediastinal lymph nodes. No pericardial effusi on is seen. Heart size upper limits of normal. Coronary artery calcification is present which is not ed marker for underlying coronary artery disease. Mild to moderate calcified plaque of the aorta exte nds into branch vessels OTHER: Surgical excision change outer aspect right breast is noted. Possible small calcified gallston e in gallbladder axial image 65. IMPRESSION: Chronic emphysematous and pulmonary lower lung thin walled cystic change along with moder ate lower lung chronic parenchymal fibrotic changes bilaterally. No suspicious acute pulmonary proces s.
== END | disposition home or self-care (01) ==
LOC: RADCTMAIN 12:51
PROVIDERS: ATTEND Internal Medicine Geriatric Medicine
DX: J43.9 Emphysema, unspecified (principal); J98.4 Other disorders of lung; J84.10 Pulmonary fibrosis, unspecified
CPT/HCPCS: 82565; 84520; 71260; 36415; Q9967

== ENCOUNTER → 2020-09-09 | Outpatient (CLI) | payer MEDICARE, BC ==
--- NOTE | 2020-09-09 13:26 | US ---
EXAMINATION TYPE: US pelvis complete transvag DATE OF EXAM: 09/09/2020 COMPARISON: CLINICAL HISTORY: N83.0 Follicular cyst of ovary. follow up ovarian cysts TECHNIQUE: Transvaginal (TV) and Transabdominal (TA) . Transabdominal sonographic images of the pel vis were acquired. Transvaginal sonographic images were medically necessary to better assess the fol lowing anatomy: Ovaries Date of LMP: Postmenopausal, G0 EXAM MEASUREMENTS: Uterus: 5.0 x 3.0 x 1.6 cm Endometrial Stripe: 0.2 cm Right Ovary: 2.2 x 1.4 cm 1. Uterus: Anteverted Appears small and heterogenous 2. Endometrium: Fluid visualized in endometrial canal 3. Right Ovary: cystic lesion = 1.6 x 1.7 x 1.3 cm 4. Left Ovary: Obscured by overlying bowel gas 5. Bilateral Adnexa: wnl 6. Posterior cul-de-sac: no free fluid IMPRESSION: 1. Nonspecific cystic lesion right ovary. 2. Diminutive uterus with heterogenous myometrium is nonspecific.
== END | disposition home or self-care (01) ==
LOC: RADUSWWP 12:03
PROVIDERS: ATTEND Obstetrics & Gynecology
DX: N83.201 Unspecified ovarian cyst, right side (principal)
CPT/HCPCS: 76830; 76856

== ENCOUNTER → 2020-10-07 | Outpatient (CLI) | payer MEDICARE, BC ==
--- NOTE | 2020-10-07 14:21 | BD ---
EXAMINATION TYPE: Axial Bone Density DATE OF EXAM: 10/07/2020 COMPARISON: NONE CLINICAL HISTORY: Height: 64.5 Weight: 142.7 FRAX RISK QUESTIONS: Alcohol (3 or more units per day): no Family History (Parent hip fracture): no Glucocorticoids (More than 3mos): no (Ex: prednisone, prednisolone, methylprednisolone, dexamethasone, and hydrocortisone). History of Fracture in Adulthood: yes Secondary Osteoporosis: 1. Type 1 Diabetes: no 2. Hyperthyroidism: no 3. Menopause before 45: no 4. Malnutrition: no 5. Chronic liver disease: no Rheumatoid Arthritis: no Current Tobacco Use: no RISK FACTORS HISTORY OF: Surgery to Spine/Hip(right/left)/Wrist (right/left): no Active: yes Diet low in dairy products/other sources of calcium: no Postmenopausal woman: age 51 MEDICATIONS: med list scanned into pacs Additional History: breast cancer pt EXAM MEASUREMENTS: Bone mineral densitometry was performed using the [employer] System. Bone mineral density as measured about the Lumbar spine is: ----- L1-L4(G/cm2): 0.932 T Score Values are as follows: ----- L2: -2.4 ----- L3: -2.2 ----- L4: -1.6 ----- L1-L4: -2.1 Bone mineral density has: decreased -7.8 % since study of: 11.07.2017 Bone mineral density about the R hip (g/cm2): 0.767 Bone mineral density about the L hip (g/cm2): 0.671 T Score values are as follows: -----R Neck: -1.9 -----L Neck: -2.6 -----R Total: -1.7 -----L Total: -1.9 Bone mineral density has: decreased -4.9 % since study of: 11.07.2017 IMPRESSION: Osteopenia NOTE: T-SCORE=SD OF THE YOUNG ADULT MEAN.
--- NOTE | 2020-10-08 12:33 | MM ---
Reason for exam: screening (asymptomatic). Last mammogram was performed 2 years and 1 month ago. History: Patient is postmenopausal, has history of breast cancer at age 56, and is nulliparous. Malignant lumpectomy of the right breast, April 26, 2002. Malignant ultrasound-guided core biopsy of the right breast, April 12, 2002. Core biopsy of the right breast. Excisional biopsy of the left breast. Lumpectomy of the left breast. Chemotherapy. Radiation therapy of the left breast. Radiation therapy of the right breast. Took estrogen for 4 years beginning at age 49. Took antineoplastic for 5 years beginning at age 56. Physical Findings: A clinical breast exam by your physician is recommended on an annual basis and results should be correlated with mammographic findings. MG 3D Screening Mammo W/Cad Bilateral CC and MLO view(s) were taken. Prior study comparison: August 27, 2018, bilateral MG 3d diag mammo w/cad AVERY. June 27, 2017, bilateral MG 3d diag mammo w/cad AVERY. The breast tissue is extremely dense which could obscure a lesion on mammography. Stable post operative changes right breast. No significant changes when compared with prior studies. ASSESSMENT: Benign, BI-RAD 2 RECOMMENDATION: Routine screening mammogram of both breasts in 1 year.
== END | disposition home or self-care (01) ==
LOC: RADMAMWWP 09:13
PROVIDERS: ATTEND Obstetrics & Gynecology
DX: Z12.31 Encounter for screening mammogram for malignant neoplasm of breast (principal); M85.89 Other specified disorders of bone density and structure, multiple sites; Z78.0 Asymptomatic menopausal state; Z85.3 Personal history of malignant neoplasm of breast
CPT/HCPCS: 77063; 77067; 77080

== ENCOUNTER → 2021-07-12 | Outpatient (CLI) | payer MEDICARE, BC ==
--- NOTE | 2021-07-12 13:48 | MR ---
EXAMINATION TYPE: MR cervical spine wo/w con DATE OF EXAM: 07/12/2021 COMPARISON: NONE HISTORY: 75-year-old female stiff neck, M50.80, disc disorder. Technique: Multiplanar, multisequence images of the cervical spine were obtained before and after adm inistration of 6.5 mL intravenous Gadavist gadolinium contrast. FINDINGS: No craniocervical junction abnormality, predental space widening, or prevertebral soft tissue swellin g. There is reversal of the normal cervical lordosis with grade 1 anterolisthesis C3-C4. Remaining align ment is maintained. Moderate disc/endplate degenerative change especially C4-C7 levels with disc space narrowing, disc de siccation, and disc osteophyte complex formation. Scattered bilateral ligamentum flavum thickening mid and lower cervical spine as well as multilevel f acet and uncovertebral joint arthropathy. At C2-C3, hypertrophic facet arthropathy with mild to moderate left neural foraminal stenosis. No spi nal canal stenosis. At C3-C4, there is hypertrophic facet and uncovertebral joint arthropathy, greater towards the left. Disc osteophyte complex and grade 1 anterolisthesis. Mild overall narrowing of the spinal canal with abutment and slight flattening of the ventral cord. Moderate to severe left neuroforaminal stenosis. At C4-C5, disc osteophyte complex abutting and slightly flatten the ventral cord congenital mild narr owing of the spinal canal. Moderate left and mild right neural foraminal stenosis. At C5-C6, there is broad-based disc osteophyte complex with contiguous uncovertebral joint and facet arthropathy. Changes result in severe right and moderate to severe left neuroforaminal stenosis. Ther e is abutment and flattening of the ventral cord with mild overall spinal canal stenosis. At C6-C7, there is mild broad-based disc osteophyte complex with ligamentum flavum thickening as well as advanced facet arthropathy. Changes result in moderate left and mild right neuroforaminal stenosi s. Minimal narrowing of the spinal canal without significant spinal canal stenosis. At C7-T1, hypertrophic facet arthropathy particularly on the left with mild left neuroforaminal narro wing. Ligamentum flavum thickening. No significant spinal canal stenosis. Normal course and signal intensity of the cervical spinal cord. No abnormal enhancement within the sp inal canal. Bilateral lingual tonsillar hypertrophy. Some asymmetric soft tissue along the region of the left voc al folds, axial postcontrast image 29. IMPRESSION: 1. Moderate degenerative disc disease from C4 through C7 levels as well as multilevel hypertrophic fa cet and uncovertebral joint arthropathy. 2. Degenerative grade 1 anterolisthesis C3-4. Reversal of the normal cervical lordosis could be posit ional or due to muscle spasm. 3. Mild overall spinal canal stenosis from C3 down through C6 levels. There is abutment and flattenin g of the ventral cord at multiple levels but no high-grade canal compromise or flank cord compression . 4. Variable neuroforaminal stenoses as outlined above, moderate to severe at some levels. 5. Some asymmetric soft tissue in the region of the left vocal fold, postcontrast axial image 29. Rec ommend direct visualization to exclude a mucosal lesion here.
== END | disposition home or self-care (01) ==
LOC: RADMRIMAIN 10:58
PROVIDERS: ATTEND Internal Medicine Geriatric Medicine
DX: M50.323 Other cervical disc degeneration at C6-C7 level (principal); M47.812 Spondylosis without myelopathy or radiculopathy, cervical region; M48.02 Spinal stenosis, cervical region; M43.12 Spondylolisthesis, cervical region; M99.71 Connective tissue and disc stenosis of intervertebral foramina of cervical region
CPT/HCPCS: 72156; A9585

== ENCOUNTER → 2021-08-03 | Outpatient (CLI) | payer MEDICARE, BC ==
--- NOTE | 2021-08-03 13:59 | US ---
EXAMINATION TYPE: US abdomen complete DATE OF EXAM: 08/03/2021 COMPARISON: CT abdomen May 21, 2019 CLINICAL HISTORY: R31.9 Hematuria. EXAM MEASUREMENTS: Liver Length: 12.3 cm Gallbladder Wall: 0.2 cm CBD: 0.5 cm Spleen: 8.1 cm Right Kidney: 9.2 x 4.0 x 4.5 cm Left Kidney: 8.6 x 4.9 x 4.5 cm Extensive midline bowel gas, technically difficult study. Pancreas: Mostly obscured by bowel gas, portions visualized wnl Liver: wnl Gallbladder: cholelithiasis, comet tail artifact Evidence for sonographic Garzon's sign: Yes CBD: wnl Spleen: splenic lobulation seen as on previous Right Kidney: cyst inferior measuring 4.0 x 3.7 x 3.8cm Left Kidney: measures small but comparable with right in size Upper IVC: wnl Abd Aorta: distal obscured by overlying bowel gas The visualized liver is slightly heterogeneous without worrisome mass or ductal dilatation. The intr ahepatic portion of the IVC and visualized abdominal aorta are within normal limits. There is depend ent small stones and/or gallbladder sludge. Common bile duct is unremarkable. The visualized portio ns of the pancreas are homogenous. Portions obscured by overlying bowel gas. The spleen is unremarka ble. Kidneys are symmetric and free of hydronephrosis. Simple appearing 4.0 cm thin-walled cyst in t he lower pole right kidney is redemonstrated. IMPRESSION: Source of hematuria not identified. If symptoms persist further investigation with CT uro gram would be warranted.
== END | disposition home or self-care (01) ==
LOC: RADUSWWP 12:11
PROVIDERS: ATTEND Internal Medicine Geriatric Medicine
DX: R31.9 Hematuria, unspecified (principal)
CPT/HCPCS: 76700

== ENCOUNTER → 2021-11-04 | Outpatient (CLI) | payer MEDICARE, BC ==
--- NOTE | 2021-11-04 14:21 | MM ---
Reason for Exam: Screening (asymptomatic). Last mammogram was performed 1 year(s) and 1 month(s) ago. Patient History: Menarche at age 13. Patient has no children. Postmenopausal. Breast cancer, bilateral, age 56. Estrogen for 4 years from age 49 until age 53. Lumpectomy on the Left side. Core Biopsy on the Right side. Excisional Biopsy on the Left side. 04/26/2002, Malignant Lumpectomy on the right side. 04/12/2002, Malignant Ultrasound-Guided Core Biopsy on the right side. Radiation Therapy, right. Radiation Therapy, left. Chemotherapy. Prior Study Comparison: 06/27/2017 Bilateral Diagnostic Mammogram, [facility]. 08/27/2018 Bilateral Diagnostic Mammogram, [facility]. 10/07/2020 Bilateral Screening Mammogram, [facility]. Tissue Density: The breast tissue is heterogeneously dense. This may lower the sensitivity of mammography. Findings: Analyzed By CAD. Diminished Size and distortion of the left breast redemonstrated. Surgical clips posterior upper outer aspect right breast. Benign-appearing bilateral axillary lymph nodes redemonstrated. There is no suspicious new group of microcalcifications or new suspicious mass in either breast. Overall Assessment: Benign, BI-RAD 2 Management: Screening Mammogram of both breasts in 1 year. Some advise bilateral breast ultrasound surveillance in patient's with background dense tissue. Electronically signed and approved by: Jaspal Degroot M.D.
== END | disposition home or self-care (01) ==
LOC: RADMAMWWP 10:29
PROVIDERS: ATTEND Obstetrics & Gynecology
DX: Z12.31 Encounter for screening mammogram for malignant neoplasm of breast (principal); Z78.0 Asymptomatic menopausal state
CPT/HCPCS: 77063; 77067

== ENCOUNTER 2022-06-20 11:48 | Inpatient (IN) | payer MEDICARE, BC ==
[2022-06-20] MEDS ORDERED: methylPREDNISolone SOD SUCCI 125 MG/2 ML VIAL IV STA (12:43)
[2022-06-20] MEDS ORDERED: IPRATROPIUM-ALBUTEROL 3 ML NEB INHALATION STA ×3 (12:43→19:54)
[2022-06-20 13:27] LABS: Basophils # (A) 0.1 k/uL (0-0.2); Basophils % (A) 1 %; Eosinophils # (A) 0.6 k/uL (0-0.7); Eosinophils % (A) 4 %; HCT 43.5 % (34.0-46.0); HGB 14.1 gm/dL (11.4-16.0); Lymphocytes # (A) 1.2 k/uL (1.0-4.8); Lymphocytes % (A) 8 %; MCH 30.8 pg (25.0-35.0); MCHC 32.4 g/dL (31.0-37.0); Mean Platelet Volume 8.3; Monocytes # (A) 0.5 k/uL (0-1.0); Monocytes % (A) 3 %; Neutrophils # (A) 13.3 k/uL (1.3-7.7); Neutrophils % (A) 84 %; Platelet Count 256 k/uL (150-450); RBC 4.58 m/uL (3.80-5.40); RDW 12.8 % (11.5-15.5); WBC 15.8 k/uL (3.8-10.6)
[2022-06-20 13:40] LABS: INR 0.9 (<1.2); Partial Thromboplastin Time 24.9 sec (22.0-30.0); Prothrombin Time 9.7 sec (9.0-12.0)
[2022-06-20 13:44] LABS: Albumin 4.2 g/dL (3.5-5.0); Calcium 8.7 mg/dL (8.4-10.2); Potassium 4.2 mmol/L (3.5-5.1); Total Bilirubin 0.5 mg/dL (0.2-1.3); Total Protein 7.9 g/dL (6.3-8.2)
--- NOTE | 2022-06-20 13:49 | XR ---
EXAMINATION TYPE: XR chest 2V DATE OF EXAM: 06/20/2022 1:36 PM COMPARISON: CT chest 11/21/2019, chest radiograph 09/05/2013. TECHNIQUE: XR chest 2V Frontal and lateral views of the chest. CLINICAL INDICATION:Female, 76 years old with history of difficulty breathing; FINDINGS: Lungs/Pleura: There is flattening of the diaphragm with increased lucency of the lungs. No evidence o f pneumothorax, pleural effusion or focal consolidation. Pulmonary vascularity: Unremarkable. Heart/mediastinum: Cardiomediastinal silhouette is unremarkable. Atherosclerotic calcifications are seen in the aorta. Musculoskeletal: No acute osseous pathology. Other findings: Surgical clips in the right breast. IMPRESSION: 1. No acute cardiopulmonary disease process. 2. COPD changes.
--- NOTE | 2022-06-20 16:44 | CT ---
EXAMINATION TYPE: CT angio chest DATE OF EXAM: 06/20/2022 COMPARISON: 11/21/2019 HISTORY: SOB, elevated d-dimer CT DLP: 223.9 mGycm Automated exposure control for dose reduction was used. CONTRAST: Performed with IV Contrast, patient injected with 80 mL of Isovue 370. There are Three-D postprocessed images. There is bullous pulmonary emphysema. There is some mild diffuse groundglass interstitial infiltrate throughout the lungs. There are a few mediastinal and bronchial lymph nodes up to 1 cm. Thoracic aort a is intact. No aneurysm or dissection. No evidence of filling defect in the pulmonary arteries. The thoracic spine is intact. Sternum is int act. IMPRESSION: No evidence of pulmonary embolism. Pulmonary emphysema. There is diffuse interstitial pneumonic infiltrate which is a change compared to old exam. No suspicious pulmonary mass. There are a few mediastinal and bronchial lymph nodes increa sed compared to old exam.
[2022-06-20] MEDS ORDERED: SODIUM CHLORIDE 0.9% 1,000 ML IV ONE (18:19)
[2022-06-20] MEDS ORDERED: SODIUM CHLORIDE 0.9% 1,000 ML IV STA (18:21)
[2022-06-20] MEDS ORDERED: LEVOFLOXACIN 750MG-D5W PMX 750 MG in DEXTROSE/WATER 1 150ML.BAG IVPB STA (18:25)
--- NOTE | 2022-06-20 19:54 | ED ---
SOB HPI - General Chief Complaint: Shortness of Breath Stated Complaint: cough, SOB Time Seen by Provider: 06/20/22 12:35 Source: patient Mode of arrival: ambulatory - History of Present Illness Initial Comments: This 76-year-old female presents with a complaint of difficulty in breathing. She states that she's also had a cough. Symptoms have been present for last 3 months. She did follow up with her primary care physician and had a course of penicillin-related antibiotics couple months ago without any relief. She does utilize a home inhaler with limited relief. She has a 50+ pack year history but does not smoke currently. She denies any known fevers or chills. She's had some yellowish production with sputum. She denies any leg pain or swelling. She denies any history of DVT or PE. She denies any history of cardiac disease or current chest pain. No other complaints or modifying factors. - Related Data Home Medications Medication Instructions Recorded Confirmed ALPRAZolam [Xanax] 0.25 mg PO HS 10/25/16 06/20/22 Acetaminophen 1,000 mg PO HS 10/25/16 06/20/22 Aspirin [Adult Low Dose Aspirin EC] 81 mg PO DAILY 10/25/16 06/20/22 Candesartan Cilexetil [Atacand] 32 mg PO DAILY 10/25/16 06/20/22 Citalopram Hydrobromide 20 mg PO DAILY 10/25/16 06/20/22 [Citalopram HBr] Ezetimibe [Zetia] 10 mg PO HS 10/25/16 06/20/22 Omeprazole [PriLOSEC] 40 mg PO DAILY 10/25/16 06/20/22 Ubidecarenone [Co Q-10] 100 mg PO DAILY 10/25/16 06/20/22 Vitamin E (Dl,Tocopheryl Acet) 400 unit PO DAILY 10/25/16 06/20/22 [Vitamin E] amLODIPine [Norvasc] 10 mg PO DAILY 10/25/16 06/20/22 traZODone HCL 50 mg PO HS 10/25/16 06/20/22 Donepezil [Aricept] 10 mg PO HS 06/20/22 06/20/22 Magnesium Oxide 400 mg PO DAILY 06/20/22 06/20/22 Rosuvastatin [Crestor] 10 mg PO DAILY 06/20/22 06/20/22 Turmeric Root Extract [Turmeric] 500 mg PO DAILY 06/20/22 06/20/22 hydrALAZINE HCL [Apresoline] 50 mg PO BID@1200,1800 06/20/22 06/20/22 rOPINIRole HCL [Requip] 1 mg PO HS 06/20/22 06/20/22 traMADol HCL 50 mg PO Q6H PRN 06/20/22 06/20/22 Allergies Allergy/AdvReac Type Severity Reaction Status Date / Time No Known Allergies Allergy Verified 06/20/22 14:26 Review of Systems ROS Statement: Those systems with pertinent positive or pertinent negative responses have been documented in the HPI. ROS Other: All systems not noted in ROS Statement are negative. Past Medical History Past Medical History: Cancer, Hyperlipidemia, Hypertension, Osteoarthritis (OA), Skin Disorder Additional Past Medical History / Comment(s): lichen planus, breast cancer x 2 History of Any Multi-Drug Resistant Organisms: MRSA Date of last positivie culture/infection: 2011 MDRO Source:: genitals Past Surgical History: Breast Surgery, Heart Catheterization With Stent, Tonsillectomy Additional Past Surgical History / Comment(s): left breast lumpectomy, rt breast lumpectomy, [place] cataracts Past Anesthesia/Blood Transfusion Reactions: Motion Sickness Additional Past Anesthesia/Blood Transfusion Reaction / Comment(s): vertigo on and off Date of Last Stent Placement:: 2012 Past Psychological History: No Psychological Hx Reported Smoking Status: Never smoker Past Alcohol Use History: None Reported, Rare Past Drug Use History: None Reported - Past Family History Father Family Medical History: Cancer Brother(s) Family Medical History: Cancer Sister(s) Family Medical History: Cancer General Exam - General Exam Comments Initial Comments: GENERAL: The patient is well nourished and well hydrated. VITAL SIGNS: Heart rate, blood pressure, respiratory rate reviewed as recorded in nurse's notes. EYES: Pupils are round and reactive. Extraocular movements are intact. No conjunctival / lid redness or swelling. ENT: No external evidence of injury, swelling, or ecchymosis. Airway is patent. Throat is clear. NECK: Nontender. No swelling or evidence of injury. No subcutaneous emphysema. Trachea is midline. No thyroid mass. HEART: Regular rate and rhythm. Good peripheral pulses. LUNGS/CHEST: Breath sounds clear and equal bilaterally. No rales, rhonchi, or wheezes. No ecchymosis, subcutaneous emphysema, or tenderness. ABDOMEN: Abdomen soft without tenderness. No palpable masses or organomegaly. No peritoneal signs. No abdominal wall swelling or ecchymosis. EXTREMITIES: No extremity tenderness. Normal muscle tone and function. No thoracolumbar tenderness. NEUROLOGIC: Sensation is grossly intact. Cranial nerve exam reveals face is symmetrical, tongue is midline, speech is clear. SKIN: No abrasions or ecchymosis is noted. No induration or masses noted. PSYCHIATRIC: Alert and oriented. Appropriate behavior and judgment. Course Vital Signs 06/20/22 06/20/22 06/20/22 12:10 13:16 13:29 Temperature 98 F Pulse Rate 73 62 Respiratory 22 22 22 Rate Blood Pressure 96/59 117/89 O2 Sat by Pulse 97 94 L Oximetry 06/20/22 06/20/22 06/20/22 14:05 14:12 14:20 Temperature Pulse Rate 66 60 60 Respiratory 20 18 18 Rate Blood Pressure 111/59 O2 Sat by Pulse 94 L Oximetry 06/20/22 06/20/22 06/20/22 15:26 16:02 17:00 Temperature 97.6 F Pulse Rate 71 72 62 Respiratory 18 20 17 Rate Blood Pressure 91/53 95/53 101/61 O2 Sat by Pulse 93 L 92 L 94 L Oximetry 06/20/22 06/20/22 06/20/22 18:20 19:01 19:13 Temperature Pulse Rate 66 71 68 Respiratory 17 18 Rate Blood Pressure 97/69 102/63 O2 Sat by Pulse 94 L 93 L Oximetry 06/20/22 06/20/22 06/20/22 19:23 20:07 20:58 Temperature 97.7 F Pulse Rate 65 92 70 Respiratory 20 20 Rate Blood Pressure 101/85 93/54 O2 Sat by Pulse 94 L 94 L Oximetry Medical Decision Making - Medical Decision Making Was pt. sent in by a medical professional or institution (, PA, HEALTH SERVICES MANAGER, urgent care, hospital, or [place] health care facility...) When possible be specific @ -[No] Did you speak to anyone other than the patient for history (EMS, parent, family, police, friend...)? What history was obtained from this source @ -[No] Did you review nursing and triage notes (agree or disagree)? Why? @ -[I reviewed and agree with nursing and triage notes] Were old charts reviewed (outside hosp., previous admission, EMS record, old EKG, old radiological studies, urgent care reports/EKG's, [place] health care facility records)? Report findings @ -[No old charts were reviewed] Differential Diagnosis (chest pain, altered mental status, abdominal pain women, abdominal pain men, vaginal bleeding, weakness, fever, dyspnea, syncope, headache, dizziness, GI bleed, back pain, seizure, CVA, palpatations, mental health)? @ -Pneumonia, pulmonary embolism, COPD exacerbation EKG interpreted by me (3pts min.). @ -EKG was interpreted by myself and this does show a normal sinus rhythm at a rate of 63. No acute ST-T wave changes are identified. The CO intervals 120, QRS duration is 87, and the QTC X-rays interpreted by me (1pt min.). @ -The chest x-ray as interpreted by myself and this does not show any acute process with COPD changes. CT interpreted by me (1pt min.). @ -This was interpreted by the radiologist and does not show any evidence of pulmonary embolism but does show some interstitial infiltrates. U/S interpreted by me (1pt. min.). @ -[None done] What testing was considered but not performed or refused? (CT, X-rays, U/S, labs)? Why? @ -[None] What meds were considered but not given or refused? Why? @ -[None] Did you discuss the management of the patient with other professionals (professionals i.e. , PA, HEALTH SERVICES MANAGER, lab, RT, psych nurse, social services assistant, respiratory equipment assistant, teacher, nuclear security officer, pillowcase cleaner)? Give summary @ -Case is discussed with internal medicine and they're agreeable to admission. Was smoking cessation discussed for >3mins.? @ -[No] Was critical care preformed (if so, how long)? @ -[No] Were there social determinants of health that impacted care today? How? (Homelessness, low income, unemployed, alcoholism, drug addiction, transportation, low edu. Level, literacy, decrease access to med. care, fci, rehab)? @ -[No] Was there de-escalation of care discussed even if they declined (Discuss DNR or withdrawal of care, Hospice)? DNR status @ -[No] What co-morbidities impacted this encounter? (DM, HTN, Smoking, COPD, CAD, Cancer, CVA, ARF, Chemo, Hep., AIDS, mental health diagnosis, sleep apnea, morbid obesity)? @ -Likely COPD. She does take an inhaler but denies any known definitive diagnosis of COPD. She does not normally follow-up with a vehicle dynamics engineer. Was patient admitted / discharged? Hospital course, mention meds given and route, prescriptions, significant lab abnormalities, going to OR and other pertinent info. @ -The patient was seen and examined. All diagnostics are reviewed. Laborator y does show a degree of leukocytosis. D-dimer is elevated and therefore the CTA of the chest is ordered. The patient appears to have pneumonia. Her blood pressure did decrease while in the emergency department and came up with some fluids. She states that she feels lightheaded on recheck. Due to her pneumonia, relative hypotension, shortness breath, cough, likely COPD exacerbation, and lightheadedness, is felt as though she would require admission to the hospital for further treatment. IV antibiotics are initiated. She receives 2 DuoNeb breathing treatments. Solu-Medrol is initiated. Undiagnosed new problem with uncertain prognosis? @ -Affirmative Drug Therapy requiring intensive monitoring for toxicity (Heparin, Nitro, Insul in, Cardizem)? @ -[No] Were any procedures done? @ -[No] Diagnosis/symptom? @ -Pneumonia, COPD exacerbation, hypotension, lightheadedness Acute, or Chronic, or Acute on Chronic? @ -Acute Uncomplicated (without systemic symptoms) or Complicated (systemic symptoms)? @ -Uncomplicated Side effects of treatment? @ -[No] Exacerbation, Progression, or Severe Exacerbation? @ -Moderately severe exacerbation Poses a threat to life or bodily function? How? (Chest pain, [place], [place], pneumonia, PE, COPD, DKA, ARF, appy, cholecystitis, CVA, Diverticulitis, Homicidal, Suicidal, threat to staff... and all critical care pts) @ -Yes, patient is hypotensive with pneumonia and will require inpatient treatment - Lab Data Result diagrams: 06/20/22 12:57 06/20/22 12:57 Lab Results 01/16/23 01/16/23 01/16/23 Range/Units 12:57 12:57 12:57 WBC 15.8 H (3.8-10.6) k/uL RBC 4.58 (3.80-5.40) m/uL Hgb 14.1 (11.4-16.0) gm/dL Hct 43.5 (34.0-46.0) % MCV 95.0 (80.0-100.0) fL MCH 30.8 (25.0-35.0) pg MCHC 32.4 (31.0-37.0) g/dL RDW 12.8 (11.5-15.5) % Plt Count 256 (150-450) k/uL MPV 8.3 Neutrophils % 84 % Lymphocytes % 8 % Monocytes % 3 % Eosinophils % 4 % Basophils % 1 % Neutrophils # 13.3 H (1.3-7.7) k/uL Lymphocytes # 1.2 (1.0-4.8) k/uL Monocytes # 0.5 (0-1.0) k/uL Eosinophils # 0.6 (0-0.7) k/uL Basophils # 0.1 (0-0.2) k/uL PT 9.7 (9.0-12.0) sec INR 0.9 (<1.2) APTT 24.9 (22.0-30.0) sec D-Dimer 2.23 H (<0.60) mg/L FEU Sodium 140 (137-145) mmol/L Potassium 4.2 (3.5-5.1) mmol/L Chloride 103 (98-107) mmol/L Carbon Dioxide 29 (22-30) mmol/L Anion Gap 8 mmol/L BUN 14 (7-17) mg/dL Creatinine 0.93 (0.52-1.04) mg/dL Est GFR (CKD-EPI)AfAm 69 (>60 ml/min/1.73 sqM) Est GFR (CKD-EPI)NonAf 60 (>60 ml/min/1.73 sqM) Glucose 99 (74-99) mg/dL Plasma Lactic Acid Jacobo (0.7-2.0) mmol/L Calcium 8.7 (8.4-10.2) mg/dL Total Bilirubin 0.5 (0.2-1.3) mg/dL AST 30 (14-36) U/L ALT 23 (4-34) U/L Alkaline Phosphatase 103 (38-126) U/L Troponin I (0.000-0.034) ng/mL NT-Pro-B Natriuret Pep pg/mL Total Protein 7.9 (6.3-8.2) g/dL Albumin 4.2 (3.5-5.0) g/dL Influenza Type A (PCR) (Not Detectd) Influenza Type B (PCR) (Not Detectd) RSV (PCR) (Not Detectd) SARS-CoV-2 (PCR) (Not Detectd) 06/20/22 06/20/22 06/20/22 Range/Units 12:57 12:57 12:57 WBC (3.8-10.6) k/uL RBC (3.80-5.40) m/uL Hgb (11.4-16.0) gm/dL Hct (34.0-46.0) % MCV (80.0-100.0) fL MCH (25.0-35.0) pg MCHC (31.0-37.0) g/dL RDW (11.5-15.5) % Plt Count (150-450) k/uL MPV Neutrophils % % Lymphocytes % % Monocytes % % Eosinophils % % Basophils % % Neutrophils # (1.3-7.7) k/uL Lymphocytes # (1.0-4.8) k/uL Monocytes # (0-1.0) k/uL Eosinophils # (0-0.7) k/uL Basophils # (0-0.2) k/uL PT (9.0-12.0) sec INR (<1.2) APTT (22.0-30.0) sec D-Dimer (<0.60) mg/L FEU Sodium (137-145) mmol/L Potassium (3.5-5.1) mmol/L Chloride (98-107) mmol/L Carbon Dioxide (22-30) mmol/L Anion Gap mmol/L BUN (7-17) mg/dL Creatinine (0.52-1.04) mg/dL Est GFR (CKD-EPI)AfAm (>60 ml/min/1.73 sqM) Est GFR (CKD-EPI)NonAf (>60 ml/min/1.73 sqM) Glucose (74-99) mg/dL Plasma Lactic Acid Jacobo 1.0 (0.7-2.0) mmol/L Calcium (8.4-10.2) mg/dL Total Bilirubin (0.2-1.3) mg/dL AST (14-36) U/L ALT (4-34) U/L Alkaline Phosphatase (38-126) U/L Troponin I <0.012 (0.000-0.034) ng/mL NT-Pro-B Natriuret Pep 363 pg/mL Total Protein (6.3-8.2) g/dL Albumin (3.5-5.0) g/dL Influenza Type A (PCR) (Not Detectd) Influenza Type B (PCR) (Not Detectd) RSV (PCR) (Not Detectd) SARS-CoV-2 (PCR) (Not Detectd) 06/20/22 Range/Units 12:57 WBC (3.8-10.6) k/uL RBC (3.80-5.40) m/uL Hgb (11.4-16.0) gm/dL Hct (34.0-46.0) % MCV (80.0-100.0) fL MCH (25.0-35.0) pg MCHC (31.0-37.0) g/dL RDW (11.5-15.5) % Plt Count (150-450) k/uL MPV Neutrophils % % Lymphocytes % % Monocytes % % Eosinophils % % Basophils % % Neutrophils # (1.3-7.7) k/uL Lymphocytes # (1.0-4.8) k/uL Monocytes # (0-1.0) k/uL Eosinophils # (0-0.7) k/uL Basophils # (0-0.2) k/uL PT (9.0-12.0) sec INR (<1.2) APTT (22.0-30.0) sec D-Dimer (<0.60) mg/L FEU Sodium (137-145) mmol/L Potassium (3.5-5.1) mmol/L Chloride (98-107) mmol/L Carbon Dioxide (22-30) mmol/L Anion Gap mmol/L BUN (7-17) mg/dL Creatinine (0.52-1.04) mg/dL Est GFR (CKD-EPI)AfAm (>60 ml/min/1.73 sqM) Est GFR (CKD-EPI)NonAf (>60 ml/min/1.73 sqM) Glucose (74-99) mg/dL Plasma Lactic Acid Jacobo (0.7-2.0) mmol/L Calcium (8.4-10.2) mg/dL Total Bilirubin (0.2-1.3) mg/dL AST (14-36) U/L ALT (4-34) U/L Alkaline Phosphatase (38-126) U/L Troponin I (0.000-0.034) ng/mL NT-Pro-B Natriuret Pep pg/mL Total Protein (6.3-8.2) g/dL Albumin (3.5-5.0) g/dL Influenza Type A (PCR) Not Detected (Not Detectd) Influenza Type B (PCR) Not Detected (Not Detectd) RSV (PCR) Not Detected (Not Detectd) SARS-CoV-2 (PCR) Not Detected (Not Detectd) Disposition Clinical Impression: Pneumonia, Hypotension, Dyspnea, Lightheadedness, Leukocytosis, Hypoxia Disposition: ADMITTED IP TO THIS HOSP Condition: Fair Is patient prescribed a controlled substance at d/c from ED?: No Time of Disposition: 19:54
[2022-06-20] MEDS ORDERED: IPRATROPIUM-ALBUTEROL 3 ML NEB INHALATION PRN (20:22)
[2022-06-20] MEDS ORDERED: PNEUMONIA PROTOCOL UTILIZED 1 EACH MISC PO PRN (20:22)
[2022-06-20] MEDS: EZETIMIBE 10 MG TAB PO SCH (20:51)
[2022-06-20] MEDS: traMADol 50 MG TAB PO PRN (20:52)
[2022-06-20] MEDS: DONEPEZIL 10 MG TAB PO SCH (20:52)
[2022-06-20] MEDS: traZODone HCL 50 MG TAB PO SCH (20:52)
[2022-06-20] MEDS: ACETAMINOPHEN TAB 500 MG TAB PO SCH (20:53)
[2022-06-20] MEDS: ALPRAZolam 0.25 MG TAB PO SCH (20:53)
[2022-06-20] MEDS: SODIUM CHLORIDE 0.9% 1,000 ML IV SCH (20:54)
[2022-06-20] MEDS: methylPREDNISolone SOD SUCCI 125 MG/2 ML VIAL IV SCH (21:06)
[2022-06-21] MEDS: PANTOPRAZOLE 40 MG TABLET PO SCH (06:09)
[2022-06-21 08:52] LABS: Basophils # (A) 0.01 X 10*3/uL (0.00-0.10); Basophils % (A) 0.1 %; Eosinophils # (A) 0 X 10*3/uL (0.04-0.35); Eosinophils % (A) 0 %; HCT 36.9 % (37.2-46.3); HGB 11.7 g/dL (12.0-15.0); Immature Grans, Automated 0.8 %; Lymphocytes # (A) 0.69 X 10*3/uL (0.90-5.00); Lymphocytes % (A) 7.8 %; MCH 30.9 pg (27.0-32.0); MCHC 31.7 g/dL (32.0-37.0); MCV 97.4 fL (80.0-97.0); Monocytes # (A) 0.11 X 10*3/uL (0.20-1.00); Monocytes % (A) 1.2 %; NRBC Per 100 WBC 0 /100 WBCS (0.0-0.0); Neutrophils % (A) 90.1 %; Platelet Count 211 X 10*3/uL (140-440); RBC 3.79 X 10*6/uL (4.10-5.20); WBC 8.88 X 10*3/uL (4.50-10.00)
[2022-06-21] MEDS ORDERED: amLODIPine 10 MG TAB PO SCH (09:00)
[2022-06-21] MEDS ORDERED: NON FORMULARY DRUG (Ubidecarenone [Co Q-10] 100 MG Capsule) PO SCH (09:00)
[2022-06-21] MEDS ORDERED: NON FORMULARY DRUG (Turmeric Root Extract [Turmeric] 500 MG Tablet) PO SCH (09:00)
[2022-06-21] MEDS ORDERED: LOSARTAN 50 MG TAB PO SCH (09:00)
[2022-06-21 09:03] LABS: African American GFR (CKD) 71.5 (60.0-200.0); Anion Gap 7.8 mmol/L (10.00-18.00); BUN/Creat Ratio 22.67 Ratio (12.00-20.00); Blood Urea Nitrogen 20.4 mg/dL (9.0-27.0); Calcium 8.4 mg/dL (8.7-10.3); Carbon Dioxide 22.2 mmol/L (20.0-27.5); Non-African American GFR(CKD) 61.7 (60.0-200.0); Potassium 4.4 mmol/L (3.5-5.5)
[2022-06-21] MEDS: ENOXAPARIN 40 MG/0.4 ML SYRINGE SQ SCH (09:16)
[2022-06-21] MEDS: CITALOPRAM HYDROBROMIDE 20 MG TAB PO SCH (09:16)
[2022-06-21] MEDS: ASPIRIN 81 MG PO SCH (09:16)
[2022-06-21] MEDS: methylPREDNISolone SOD SUCCI 125 MG/2 ML VIAL IV SCH ×4 (09:17→22:12)
[2022-06-21] MEDS: MAGNESIUM OXIDE 400 MG TAB PO SCH (09:17)
[2022-06-21] MEDS: ATORVASTATIN 20 MG TAB PO SCH (09:17)
[2022-06-21] MEDS: VITAMIN E (DL,TOCOPHERYL ACET) 400 UNIT (180 MG) CAP PO SCH (09:22)
--- NOTE | 2022-06-21 11:34 | P.CNPUL ---
History of Present Illness Consult date: 06/21/22 Requesting physician: Dulce Pink Reason for consult: dyspnea, cough, COPD, hypoxemia Chief complaint: Shortness of breath. History of present illness: Pulmonary consult dated 06/21/2022. 76-year-old female who presented to the emergency department on June 20, complaining of cough, chest congestion, and shortness of breath. It has been going on for about 3 months or so. She did receive a short course of prednisone and some antibiotics, without benefit. The patient likely has underlying COPD. The patient smoked for 50 years. She does not smoke currently. The patient has never seen a lung doctor in the past. Her primary care physician is Dr. Barnhart. Currently, she is seen in room 478. She's getting saline at 100 mL an hour. She's also getting oxygen at 2 L by nasal cannula. The patient does have a frequent cough, no audible wheezing or use of accessory muscles. White count 8.8, 11.7, hematocrit 36.9, and platelet count 211,000. Sodium 139, potassium 4.4, chlorides 109, CO2 22, anion gap 8, BUN 20, creatinine 0.9. The rest of the comprehensive metabolic profile appears to be normal. Chest x-rays consistent with COPD. Computed tomography scan showed no evidence of pulmonary embolism, but did show evidence of pulmonary emphysema. In addition there are some basilar interstitial changes. Review of Systems REVIEW OF SYSTEMS: CONSTITUTIONAL: [Negative.] NEUROLOGIC: [ Negative.] HEENT: [ Negative.] CARDIAC: [Negative.] PULMONARY: Shortness of breath, cough, chest congestion, lasting about 3 months. GI: [Negative.] : [Negative.] RHEUMATOLOGIC: [ Negative.] IMMUNOLOGIC: [ Negative.] ENDOCRINE: [Negative. ] DERMATOLOGIC: [Negative.] Past Medical History Past Medical History: Cancer, Hyperlipidemia, Hypertension, Osteoarthritis (OA), Skin Disorder Additional Past Medical History / Comment(s): lichen planus, breast cancer x 2 History of Any Multi-Drug Resistant Organisms: MRSA Date of last positivie culture/infection: 2011 MDRO Source:: genitals Past Surgical History: Breast Surgery, Heart Catheterization With Stent, Tonsillectomy Additional Past Surgical History / Comment(s): left breast lumpectomy, rt breast lumpectomy, dal[place] cataracts Past Anesthesia/Blood Transfusion Reactions: Motion Sickness Additional Past Anesthesia/Blood Transfusion Reaction / Comment(s): vertigo on and off Date of Last Stent Placement:: 2012 Past Psychological History: No Psychological Hx Reported Smoking Status: Never smoker Past Alcohol Use History: None Reported, Rare Past Drug Use History: None Reported - Past Family History Father Family Medical History: Cancer Brother(s) Family Medical History: Cancer Sister(s) Family Medical History: Cancer Medications and Allergies Home Medications Medication Instructions Recorded Confirmed Type ALPRAZolam [Xanax] 0.25 mg PO HS 10/25/16 06/20/22 History Acetaminophen 1,000 mg PO HS 10/25/16 06/20/22 History Aspirin [Adult Low Dose Aspirin EC] 81 mg PO DAILY 10/25/16 06/20/22 History Candesartan Cilexetil [Atacand] 32 mg PO DAILY 10/25/16 06/20/22 History Citalopram Hydrobromide 20 mg PO DAILY 10/25/16 06/20/22 History [Citalopram HBr] Ezetimibe [Zetia] 10 mg PO HS 10/25/16 06/20/22 History Omeprazole [PriLOSEC] 40 mg PO DAILY 10/25/16 06/20/22 History Ubidecarenone [Co Q-10] 100 mg PO DAILY 10/25/16 06/20/22 History Vitamin E (Dl,Tocopheryl Acet) 400 unit PO DAILY 10/25/16 06/20/22 History [Vitamin E] amLODIPine [Norvasc] 10 mg PO DAILY 10/25/16 06/20/22 History traZODone HCL 50 mg PO HS 10/25/16 06/20/22 History Donepezil [Aricept] 10 mg PO HS 06/20/22 06/20/22 History Magnesium Oxide 400 mg PO DAILY 06/20/22 06/20/22 History Rosuvastatin [Crestor] 10 mg PO DAILY 06/20/22 06/20/22 History Turmeric Root Extract [Turmeric] 500 mg PO DAILY 06/20/22 06/20/22 History hydrALAZINE HCL [Apresoline] 50 mg PO BID@1200,1800 06/20/22 06/20/22 History rOPINIRole HCL [Requip] 1 mg PO HS 06/20/22 06/20/22 History traMADol HCL 50 mg PO Q6H PRN 06/20/22 06/20/22 History Allergies Allergy/AdvReac Type Severity Reaction Status Date / Time No Known Allergies Allergy Verified 06/20/22 14:26 Physical Exam Osteopathic Statement: *. No significant issues noted on an osteopathic structural exam other than those noted in the History and Physical/Consult. Vitals: Vital Signs Temp Pulse Pulse Resp BP BP Pulse Ox 06/21/22 08:00 97.6 F 73 16 103/59 96 06/21/22 07:24 62 06/21/22 07:15 62 06/21/22 02:06 98.3 F 64 16 90/57 93 L 06/20/22 21:54 98.6 F 67 18 87/55 92 L 06/20/22 20:58 97.7 F 70 20 93/54 94 L 06/20/22 20:07 92 20 101/85 94 L 06/20/22 19:23 65 06/20/22 19:13 68 06/20/22 19:01 71 18 102/63 93 L 06/20/22 18:20 66 17 97/69 94 L 06/20/22 17:00 62 17 101/61 94 L 06/20/22 16:02 72 20 95/53 92 L 06/20/22 15:26 97.6 F 71 18 91/53 93 L 06/20/22 14:20 60 18 06/20/22 14:12 60 18 06/20/22 14:05 66 20 111/59 94 L 06/20/22 13:29 22 06/20/22 13:16 62 22 117/89 94 L 06/20/22 12:10 98 F 73 22 96/59 97 Intake and Output 06/20/22 06/21/22 06/21/22 22:59 06:59 14:59 Other: # Voids 2 Weight 66.678 kg No acute distress, oriented 3. Frequent cough, without evidence of audible wheezing or use of accessory muscles. The patient remains on oxygen at 2 L. HEENT examination is grossly unremarkable. Neck supple. Full range of motion. No adenopathy thyromegaly or neck vein distention. Cardiovascular examination reveals regular rhythm rate. S1-S2 normal. No S3 or S4. No discernible murmur noted. Heart rate 73 bpm. Lungs reveal scattered rhonchi. No wheezes. No crackles. Patient has a frequent cough. Is mostly dry and nonproductive. Breath sounds are equal bilaterally but diminished throughout. Abdomen soft bowel sounds are heard. No masses or tenderness. Extremities are intact. No cyanosis clubbing or edema. Skin is without rash or lesion. Neurologic examination is brief but nonfocal. Results - Laboratory Findings CBC and BMP: 06/21/22 04:52 06/21/22 04:52 PT/INR, D-dimer PT 9.7 sec (9.0-12.0) 06/20/22 12:57 INR 0.9 (<1.2) 06/20/22 12:57 D-Dimer 2.23 mg/L FEU (<0.60) H 06/20/22 12:57 Abnormal lab findings: Abnormal Labs 06/20/22 06/20/22 06/21/22 12:57 12:57 04:52 WBC 15.8 H RBC 3.79 L Hgb 11.7 L Hct 36.9 L MCV 97.4 H MCHC 31.7 L Immature Gran # 0.07 H Neutrophils # 13.3 H 8.00 H Lymphocytes # 0.69 L Monocytes # 0.11 L Eosinophils # 0 L D-Dimer 2.23 H Anion Gap BUN/Creatinine Ratio Glucose Calcium 06/21/22 04:52 WBC RBC Hgb Hct MCV MCHC Immature Gran # Neutrophils # Lymphocytes # Monocytes # Eosinophils # D-Dimer Anion Gap 7.80 L BUN/Creatinine Ratio 22.67 H Glucose 133 H Calcium 8.4 L - Diagnostic Findings Chest x-ray: image reviewed CT scan - chest: image reviewed Assessment and Plan Assessment: Acute COPD exacerbation, without obvious pneumonia. Previous history of heavy tobacco use. History of CAD with previous stent placement. History of hyperlipidemia. History of hypertension. History of lichen planus. History of breast cancer. Plan: Plan dated 06/21/2022. The patient is placed on Pulmicort, and formoterol, at usual doses. In addition, the patient stays on albuterol sulfate and ipratropium bromide, 4 times a day and when necessary. The patient is on Levaquin empirically. The patient's getting Solu-Medrol 60 mg 4 times a day. Finally, we'll check a pro-calcitonin level. The patient will need an outpatient evaluation, with complete pulmonary function testing. We will continue to follow make recommendations along the way. Time with Patient: Greater than 30
[2022-06-21] MEDS: IPRATROPIUM-ALBUTEROL 3 ML NEB INHALATION SCH ×3 (11:55→19:49)
[2022-06-21] MEDS: hydrALAZINE HCL 50 MG TAB PO SCH ×2 (12:43→18:07)
--- NOTE | 2022-06-21 13:54 | P.HPIM ---
History of Present Illness H&P Date: 06/21/22 History of present illness; patient is 76-year-old lady with past medical significant for hypertension, history of tobacco abuse who presented to the ER because of worsening shortness of breath and cough. Patient states it has been going on for the last 3 months. Patient has seen her PCP and has taken a course of antibiotics. Patient denies any fever or chills. Complaining of shortness of breath on exertion. Patient admits to smoking for more than 50 years. Patient has not been diagnosed formally as having COPD. Because of this worsening shortness of breath patient consented to the ER of [facility].Initial lab work in the ER showed WBC 15.8, hemoglobin 14.1, sodium 140, potassium 4.2, chloride 103, BUN 14, creatinine 0.93.D-dimer was elevated at 2.23,Influenza A and B are negative, and COVID-19 also negative. CTA chest showed no evidence of PE, showed pulmonary emphysema, no suspicious pulmonary mass. REVIEW OF SYSTEMS: CONSTITUTIONAL: No fever, no malaise, no fatigue. HEENT: No recent visual problems or hearing problems. Denied any sore throat. CARDIOVASCULAR: No chest pain, orthopnea, PND, no palpitations, no syncope. PULMONARY: As mentioned in HPI GASTROINTESTINAL: No diarrhea, no nausea, no vomiting, no abdominal pain. NEUROLOGICAL: No headaches, no weakness, no numbness. HEMATOLOGICAL: Denies any bleeding or petechiae. GENITOURINARY: Denies any burning micturition, frequency, or urgency. MUSCULOSKELETAL/RHEUMATOLOGICAL: Denies any joint pain, swelling, or any muscle pain. ENDOCRINE: Denies any polyuria or polydipsia. The rest of the 14-point review of systems is negative. PHYSICAL EXAMINATION: GENERAL: The patient is alert and oriented x3, not in any acute distress. Well developed, well nourished. HEENT: Pupils are round and equally reacting to light. EOMI. No scleral icterus. No conjunctival pallor. Normocephalic, atraumatic. No pharyngeal erythema. No thyromegaly. CARDIOVASCULAR: S1 and S2 present. No murmurs, rubs, or gallops. PULMONARY: Coarse breath sounds bilaterally, expiratory wheeze audible ABDOMEN: Soft, nontender, nondistended, normoactive bowel sounds. No palpable organomegaly. MUSCULOSKELETAL: No joint swelling or deformity. EXTREMITIES: No cyanosis, clubbing, or pedal edema. NEUROLOGICAL: Gross neurological examination did not reveal any focal deficits. SKIN: No rashes. Assessment and plan Acute COPD exacerbation Hypertension Hyperlipidemia Plan; Continue oxygen supplementation Continue use of I-S Aggressive bronchopulmonary hygiene Follow-up on blood cultures Follow-up on sputum cultures Continue breathing treatments Continue IV steroids Continue Levaquin Resume home meds Consult pulmonary Past Medical History Past Medical History: Cancer, Hyperlipidemia, Hypertension, Osteoarthritis (OA), Skin Disorder Additional Past Medical History / Comment(s): lichen planus, breast cancer x 2 History of Any Multi-Drug Resistant Organisms: MRSA Date of last positivie culture/infection: 2011 MDRO Source:: genitals Past Surgical History: Breast Surgery, Heart Catheterization With Stent, Tonsillectomy Additional Past Surgical History / Comment(s): left breast lumpectomy, rt breast lumpectomy, dal[place] cataracts Past Anesthesia/Blood Transfusion Reactions: Motion Sickness Additional Past Anesthesia/Blood Transfusion Reaction / Comment(s): vertigo on and off Date of Last Stent Placement:: 2012 Past Psychological History: No Psychological Hx Reported Smoking Status: Never smoker Past Alcohol Use History: None Reported, Rare Past Drug Use History: None Reported - Past Family History Father Family Medical History: Cancer Brother(s) Family Medical History: Cancer Sister(s) Family Medical History: Cancer Medications and Allergies Home Medications Medication Instructions Recorded Confirmed Type ALPRAZolam [Xanax] 0.25 mg PO HS 10/25/16 06/20/22 History Acetaminophen 1,000 mg PO 10/25/16 06/20/22 History Aspirin [Adult Low Dose Aspirin EC] 81 mg PO DAILY 10/25/16 06/20/22 History Candesartan Cilexetil [Atacand] 32 mg PO DAILY 10/25/16 06/20/22 History Citalopram Hydrobromide 20 mg PO DAILY 10/25/16 06/20/22 History [Citalopram HBr] Ezetimibe [Zetia] 10 mg PO 10/25/16 06/20/22 History Omeprazole [PriLOSEC] 40 mg PO DAILY 10/25/16 06/20/22 History Ubidecarenone [Co Q-10] 100 mg PO DAILY 10/25/16 06/20/22 History Vitamin E (Dl,Tocopheryl Acet) 400 unit PO DAILY 10/25/16 06/20/22 History [Vitamin E] amLODIPine [Norvasc] 10 mg PO DAILY 10/25/16 06/20/22 History traZODone HCL 50 mg PO HS 10/25/16 06/20/22 History Donepezil [Aricept] 10 mg PO HS 06/20/22 06/20/22 History Magnesium Oxide 400 mg PO DAILY 06/20/22 06/20/22 History Rosuvastatin [Crestor] 10 mg PO DAILY 06/20/22 06/20/22 History Turmeric Root Extract [Turmeric] 500 mg PO DAILY 06/20/22 06/20/22 History hydrALAZINE HCL [Apresoline] 50 mg PO BID@1200,1800 06/20/22 06/20/22 History rOPINIRole HCL [Requip] 1 mg PO HS 06/20/22 06/20/22 History traMADol HCL 50 mg PO Q6H PRN 06/20/22 06/20/22 History Allergies Allergy/AdvReac Type Severity Reaction Status Date / Time No Known Allergies Allergy Verified 06/20/22 14:26 Physical Exam Vitals: Vital Signs Temp Pulse Pulse Resp BP BP Pulse Ox 06/21/22 12:05 72 06/21/22 11:55 76 06/21/22 08:00 97.6 F 73 16 103/59 96 06/21/22 07:24 62 06/21/22 07:15 62 06/21/22 02:06 98.3 F 64 16 90/57 93 L 06/20/22 21:54 98.6 F 67 18 87/55 92 L 06/20/22 20:58 97.7 F 70 20 93/54 94 L 06/20/22 20:07 92 20 101/85 94 L 06/20/22 19:23 65 06/20/22 19:13 68 06/20/22 19:01 71 18 102/63 93 L 06/20/22 18:20 66 17 97/69 94 L 06/20/22 17:00 62 17 101/61 94 L 06/20/22 16:02 72 20 95/53 92 L 06/20/22 15:26 97.6 F 71 18 91/53 93 L 06/20/22 14:20 60 18 06/20/22 14:12 60 18 06/20/22 14:05 66 20 111/59 94 L Intake and Output 06/20/22 06/21/22 06/21/22 22:59 06:59 14:59 Other: # Voids 2 Weight 66.678 kg Results CBC & Chem 7: 06/21/22 04:52 06/21/22 04:52 Labs: Abnormal Lab Results - Last 24 Hours (Table) 06/20/22 06/21/22 06/21/22 Range/Units 12:57 04:52 04:52 RBC 3.79 L (4.10-5.20) X 10*6/uL Hgb 11.7 L (12.0-15.0) g/dL Hct 36.9 L (37.2-46.3) % MCV 97.4 H (80.0-97.0) fL MCHC 31.7 L (32.0-37.0) g/dL Immature Gran # 0.07 H (0.00-0.04) X 10*3/uL Neutrophils # 8.00 H (1.80-7.70) X 10*3/uL Lymphocytes # 0.69 L (0.90-5.00) X 10*3/uL Monocytes # 0.11 L (0.20-1.00) X 10*3/uL Eosinophils # 0 L (0.04-0.35) X 10*3/uL D-Dimer 2.23 H (<0.60) mg/L FEU Anion Gap 7.80 L (10.00-18.00) mmol/L BUN/Creatinine Ratio 22.67 H (12.00-20.00) Ratio Glucose 133 H (70-110) mg/dL Calcium 8.4 L (8.7-10.3) mg/dL Thrombosis Risk Factor Assmnt - Choose All That Apply Each Factor Represents 1 point: Serious lung disease incl. pneumonia (< 1month) Other Risk Factors: Yes Each Risk Factor Represents 3 Points: Age 75 years or older Other congenital or acquired thrombophilia - If yes, enter type in comment: No Thrombosis Risk Factor Assessment Total Risk Factor Score: 4 Thrombosis Risk Factor Assessment Level: Moderate Risk
[2022-06-21] MEDS ORDERED: LEVOFLOXACIN 750MG-D5W PMX 750 MG in DEXTROSE/WATER 1 150ML.BAG IVPB SCH (18:00)
[2022-06-21] MEDS: LEVOFLOXACIN 750 MG TAB PO SCH (18:07)
[2022-06-21] MEDS: SODIUM CHLORIDE 0.9% 1,000 ML IV SCH (18:13)
[2022-06-21] MEDS: BUDESONIDE 1 MG/2 ML NEBU INHALATION SCH (19:49)
[2022-06-21] MEDS: FORMOTEROL FUMARATE 20 MCG/2 ML NEBU INHALATION SCH (19:49)
[2022-06-21] MEDS: traZODone HCL 50 MG TAB PO SCH (21:08)
[2022-06-21] MEDS: DONEPEZIL 10 MG TAB PO SCH (21:08)
[2022-06-21] MEDS: EZETIMIBE 10 MG TAB PO SCH (21:09)
[2022-06-21] MEDS: ALPRAZolam 0.25 MG TAB PO SCH (21:09)
[2022-06-21] MEDS: ACETAMINOPHEN TAB 500 MG TAB PO SCH (21:09)
[2022-06-22 04:53] LABS: Basophils % (A) 0 %; Eosinophils % (A) 0 %; HCT 33.4 % (34.0-46.0); Lymphocytes # (A) 0.6 k/uL (1.0-4.8); Lymphocytes % (A) 4 %; MCH 31.5 pg (25.0-35.0); MCV 95.4 fL (80.0-100.0); Mean Platelet Volume 9.1; Monocytes # (A) 0.3 k/uL (0-1.0); Monocytes % (A) 2 %; Neutrophils % (A) 93 %; Platelet Count 179 k/uL (150-450); RDW 13.2 % (11.5-15.5); WBC 12.9 k/uL (3.8-10.6)
[2022-06-22 04:58] LABS: ALT 25 U/L (4-34); AST 39 U/L (14-36); African American GFR (CKD) 69 (>60 ml/min/1.73 sqM); Albumin 3.1 g/dL (3.5-5.0); Albumin/Globulin Ratio 1.1; Alkaline Phosphatase 63 U/L (38-126); Anion Gap 6 mmol/L; Blood Urea Nitrogen 22 mg/dL (7-17); Calcium 8.3 mg/dL (8.4-10.2); Carbon Dioxide 22 mmol/L (22-30); Chloride 111 mmol/L (98-107); Globulin 2.8 g/dL; Glucose 139 mg/dL (74-99); Non-African American GFR(CKD) 60 (>60 ml/min/1.73 sqM); Potassium 4.2 mmol/L (3.5-5.1); Sodium 139 mmol/L (137-145); Total Bilirubin 0.2 mg/dL (0.2-1.3); Total Protein 5.9 g/dL (6.3-8.2)
[2022-06-22] MEDS: PANTOPRAZOLE 40 MG TABLET PO SCH (05:52)
[2022-06-22] MEDS: IPRATROPIUM-ALBUTEROL 3 ML NEB INHALATION SCH ×4 (06:12→19:11)
[2022-06-22] MEDS: BUDESONIDE 1 MG/2 ML NEBU INHALATION SCH ×2 (08:30→19:11)
[2022-06-22] MEDS: FORMOTEROL FUMARATE 20 MCG/2 ML NEBU INHALATION SCH ×2 (08:30→19:11)
[2022-06-22] MEDS: VITAMIN E (DL,TOCOPHERYL ACET) 400 UNIT (180 MG) CAP PO SCH (08:46)
[2022-06-22] MEDS: methylPREDNISolone SOD SUCCI 125 MG/2 ML VIAL IV SCH ×4 (08:46→20:35)
[2022-06-22] MEDS: CITALOPRAM HYDROBROMIDE 20 MG TAB PO SCH (08:46)
[2022-06-22] MEDS: ATORVASTATIN 20 MG TAB PO SCH (08:46)
[2022-06-22] MEDS: ASPIRIN 81 MG PO SCH (08:46)
[2022-06-22] MEDS: ENOXAPARIN 40 MG/0.4 ML SYRINGE SQ SCH (08:47)
[2022-06-22] MEDS: MAGNESIUM OXIDE 400 MG TAB PO SCH (08:47)
--- NOTE | 2022-06-22 11:35 | P.PN ---
Subjective Progress Note Date: 06/22/22 Principal diagnosis: COPD exacerbation 76-year-old female who presented to the emergency department on June 20, complaining of cough, chest congestion, and shortness of breath. It has been going on for about 3 months or so. She did receive a short course of prednisone and some antibiotics, without benefit. The patient likely has underlying COPD. The patient smoked for 50 years. She does not smoke currently. The patient has never seen a lung doctor in the past. Her primary care physician is Dr. Barnhart. Currently, she is seen in room 478. She's getting saline at 100 mL an hour. She's also getting oxygen at 2 L by nasal cannula. The patient does have a frequent cough, no audible wheezing or use of accessory muscles. White count 8.8, 11.7, hematocrit 36.9, and platelet count 211,000. Sodium 139, potassium 4.4, chlorides 109, CO2 22, anion gap 8, BUN 20, creatinine 0.9. The rest of the comprehensive metabolic profile appears to be normal. Chest x-rays c onsistent with COPD. Computed tomography scan showed no evidence of pulmonary embolism, but did show evidence of pulmonary emphysema. In addition there are some basilar interstitial changes. Evaluating this patient today 06/22/2022 in follow-up on a general medical floor. Patient is currently sitting, on room air, in no acute distress. Patient's lung sounds to auscultations have much better today. She continues to have a persistent nonproductive cough. No new chest x-ray to review today. CBC from today shows mild leukocytosis with a WBC count of 12.9, hemoglobin 11, hematocrit 33.4, platelets 179,000. Patient's BMP from today shows a sodium of 139, potassium 4.2, chloride 111, serum CO2 22, BUN 22, creatinine 0.93, glucose 139. Patient's procalcitonin level was low at 0.05. Patient's sputum culture was received, and blood cultures are negative at 24 hours. Patient is afebrile. Patient is maintained on a course of DuoNeb inhalation, budesonide inhalation, formoterol inhalation, and IV Solu-Medrol. Patient's vital signs remain stable. Objective - Vital Signs Vital signs: Vital Signs Temp 98.1 F 06/22/22 08:00 Pulse 79 06/22/22 08:47 Resp 18 06/22/22 08:47 BP 85/53 06/22/22 08:00 Pulse Ox 92 L 06/22/22 09:37 FiO2 Intake & Output 06/21/22 06/22/22 06/22/22 18:59 06:59 18:59 Other: # Voids 1 2 - Exam A 76-year-old female , no acute distress, alert and oriented 3. HEENT examination is grossly unremarkable. Neck supple. Full range of motion. No adenopathy thyromegaly or neck vein distention. Cardiovascular examination reveals regular rhythm rate. S1-S2 normal. No S3 or S4. No discernible murmur noted. Heart rate 79 bpm. Lungs reveal scattered rhonchi. No wheezes. No crackles. Patient has a frequent nonproductive cough. Breath sounds are equal bilaterally with increased aeration. Abdomen soft bowel sounds are heard. No masses or tenderness. Extremities are intact. No cyanosis clubbing or edema. Skin is without rash or lesion. Neurologic examination is brief but nonfocal. - Labs CBC & Chem 7: 06/22/22 03:47 06/22/22 03:47 Labs: Abnormal Lab Results - Last 24 Hours (Table) 06/22/22 06/22/22 Range/Units 03:47 03:47 WBC 12.9 H (3.8-10.6) k/uL RBC 3.50 L (3.80-5.40) m/uL Hgb 11.0 L D (11.4-16.0) gm/dL Hct 33.4 L (34.0-46.0) % Neutrophils # 12.0 H (1.3-7.7) k/uL Lymphocytes # 0.6 L (1.0-4.8) k/uL Chloride 111 H (98-107) mmol/L BUN 22 H (7-17) mg/dL Glucose 139 H (74-99) mg/dL Calcium 8.3 L (8.4-10.2) mg/dL AST 39 H (14-36) U/L Total Protein 5.9 L (6.3-8.2) g/dL Albumin 3.1 L (3.5-5.0) g/dL Microbiology - Last 24 Hours (Table) 06/21/22 12:18 Gram Stain - Preliminary Sputum Sputum Culture - Preliminary 06/20/22 12:55 Blood Culture - Preliminary Blood No Growth after 24 hours 06/20/22 13:10 Blood Culture - Preliminary Blood No Growth after 24 hours Assessment and Plan Assessment: Acute COPD exacerbation, without obvious pneumonia. Previous history of heavy tobacco use. History of CAD with previous stent placement. History of hyperlipidemia. History of hypertension. History of lichen planus. History of breast cancer. Plan: Patient's medications and labs reviewed. On room air Continue DuoNeb inhalation, budesonide inhalation, formoterol inhalation, and IV Solu-Medrol Continue Lovenox for DVT prophylaxis and Protonix for GI prophylaxis We will continue to follow I have personally seen and examined the patient, performed the documentation and the assessment and plan as written. Number of minutes spent on the visit: 10. Time with Patient: Less than 30
--- NOTE | 2022-06-22 13:03 | P.PN ---
Subjective Progress Note Date: 06/22/22 patient is 76-year-old lady with past medical significant for hypertension, history of tobacco abuse who presented to the ER because of worsening shortness of breath and cough. Patient states it has been going on for the last 3 months. Patient has seen her PCP and has taken a course of antibiotics. Patient denies any fever or chills. Complaining of shortness of breath on exertion. Patient admits to smoking for more than 50 years. Patient has not been diagnosed formally as having COPD. Because of this worsening shortness of breath patient consented to the ER of [facility].Initial lab work in the ER showed WBC 15.8, hemoglobin 14.1, sodium 140, potassium 4.2, chloride 103, BUN 14, creatinine 0.93.D-dimer was elevated at 2.23,Influenza A and B are negative, and COVID-19 also negative. CTA chest showed no evidence of PE, showed pulmonary emphysema, no suspicious pulmonary mass. 06/22. Patient seen and examined. States shortness of breath is improving. Still has cough. Vital signs stable REVIEW OF SYSTEMS: CONSTITUTIONAL: No fever, no malaise,. CARDIOVASCULAR: No chest pain, no palpitations, no syncope. PULMONARY: Mentioned in HPI GASTROINTESTINAL: No diarrhea, no nausea, no vomiting, no abdominal pain. NEUROLOGICAL: No headaches, no weakness, PHYSICAL EXAMINATION: GENERAL: The patient is alert and oriented x3, not in any acute distress. Well developed, well nourished. HEENT: Pupils are round and equally reacting to light. EOMI. No scleral icterus. No conjunctival pallor. Normocephalic, atraumatic. No pharyngeal erythema. No thyromegaly. CARDIOVASCULAR: S1 and S2 present. No murmurs, rubs, or gallops. PULMONARY: Coarse breath some bilaterally, no wheeze audible ABDOMEN: Soft, nontender, nondistended, normoactive bowel sounds. No palpable organomegaly. MUSCULOSKELETAL: No joint swelling or deformity. EXTREMITIES: No cyanosis, clubbing, or pedal edema. NEUROLOGICAL: Gross neurological examination did not reveal any focal deficits. SKIN: No rashes. Assessment and plan Acute COPD exacerbation Hypertension Hyperlipidemia Plan; Continue oxygen supplementation Continue use of I-S Aggressive bronchopulmonary hygiene Continue breathing treatments Continue IV steroids Continue Levaquin Follow-up on pulmonary recommendations Objective - Vital Signs Vital signs: Vital Signs Temp 98.1 F 06/22/22 08:00 Pulse 60 06/22/22 11:57 Resp 18 06/22/22 08:47 BP 85/53 06/22/22 08:00 Pulse Ox 92 L 06/22/22 09:37 FiO2 Intake & Output 06/21/22 06/22/22 06/22/22 18:59 06:59 18:59 Other: # Voids 1 2 - Labs CBC & Chem 7: 06/22/22 03:47 06/22/22 03:47 Labs: Abnormal Lab Results - Last 24 Hours (Table) 06/22/22 06/22/22 Range/Units 03:47 03:47 WBC 12.9 H (3.8-10.6) k/uL RBC 3.50 L (3.80-5.40) m/uL Hgb 11.0 L D (11.4-16.0) gm/dL Hct 33.4 L (34.0-46.0) % Neutrophils # 12.0 H (1.3-7.7) k/uL Lymphocytes # 0.6 L (1.0-4.8) k/uL Chloride 111 H (98-107) mmol/L BUN 22 H (7-17) mg/dL Glucose 139 H (74-99) mg/dL Calcium 8.3 L (8.4-10.2) mg/dL AST 39 H (14-36) U/L Total Protein 5.9 L (6.3-8.2) g/dL Albumin 3.1 L (3.5-5.0) g/dL Microbiology - Last 24 Hours (Table) 06/21/22 12:18 Gram Stain - Preliminary Sputum Sputum Culture - Preliminary 06/20/22 12:55 Blood Culture - Preliminary Blood No Growth after 24 hours 06/20/22 13:10 Blood Culture - Preliminary Blood No Growth after 24 hours
[2022-06-22] MEDS: LEVOFLOXACIN 750 MG TAB PO SCH (17:52)
[2022-06-22] MEDS: EZETIMIBE 10 MG TAB PO SCH (20:34)
[2022-06-22] MEDS: ALPRAZolam 0.25 MG TAB PO SCH (20:34)
[2022-06-22] MEDS: ACETAMINOPHEN TAB 500 MG TAB PO SCH (20:34)
[2022-06-22] MEDS: DONEPEZIL 10 MG TAB PO SCH (20:34)
[2022-06-22] MEDS: traZODone HCL 50 MG TAB PO SCH (20:35)
[2022-06-23] MEDS: traMADol 50 MG TAB PO PRN (05:48)
[2022-06-23] MEDS: PANTOPRAZOLE 40 MG TABLET PO SCH (05:48)
[2022-06-23] MEDS: methylPREDNISolone SOD SUCCI 125 MG/2 ML VIAL IV SCH ×4 (08:34→21:51)
[2022-06-23] MEDS: CITALOPRAM HYDROBROMIDE 20 MG TAB PO SCH (08:35)
[2022-06-23] MEDS: ASPIRIN 81 MG PO SCH (08:35)
[2022-06-23] MEDS: ATORVASTATIN 20 MG TAB PO SCH (08:35)
[2022-06-23] MEDS: MAGNESIUM OXIDE 400 MG TAB PO SCH (08:35)
[2022-06-23] MEDS: VITAMIN E (DL,TOCOPHERYL ACET) 400 UNIT (180 MG) CAP PO SCH (08:35)
[2022-06-23] MEDS: ENOXAPARIN 40 MG/0.4 ML SYRINGE SQ SCH (08:35)
[2022-06-23] MEDS: FORMOTEROL FUMARATE 20 MCG/2 ML NEBU INHALATION SCH ×2 (09:03→19:40)
[2022-06-23] MEDS: IPRATROPIUM-ALBUTEROL 3 ML NEB INHALATION SCH ×4 (09:03→19:39)
[2022-06-23] MEDS: BUDESONIDE 1 MG/2 ML NEBU INHALATION SCH ×2 (09:04→19:40)
--- NOTE | 2022-06-23 10:41 | P.PN ---
Subjective Progress Note Date: 06/23/22 Principal diagnosis: Shortness of breath. COPD exacerbation 76-year-old female who presented to the emergency department on June 20, complaining of cough, chest congestion, and shortness of breath. It has been going on for about 3 months or so. She did receive a short course of prednisone and some antibiotics, without benefit. The patient likely has underlying COPD. The patient smoked for 50 years. She does not smoke currently. The patient has never seen a lung doctor in the past. Her primary care physician is Dr. Barnhart. Currently, she is seen in room 478. She's getting saline at 100 mL an hour. She's also getting oxygen at 2 L by nasal cannula. The patient does have a frequent cough, no audible wheezing or use of accessory muscles. White count 8.8, 11.7, hematocrit 36.9, and platelet count 211,000. Sodium 139, potassium 4.4, chlorides 109, CO2 22, anion gap 8, BUN 20, creatinine 0.9. The rest of the comprehensive metabolic profile appears to be normal. Chest x-rays consistent with COPD. Computed tomography scan showed no evidence of pulmonary embolism, but did show evidence of pulmonary emphysema. In addition there are some basilar interstitial changes. Evaluating this patient today 06/22/2022 in follow-up on a general medical floor. Patient is currently sitting, on room air, in no acute distress. Patient's lung sounds to auscultations have much better today. She continues to have a persistent nonproductive cough. No new chest x-ray to review today. CBC from today shows mild leukocytosis with a WBC count of 12.9, hemoglobin 11, hematocrit 33.4, platelets 179,000. Patient's BMP from today shows a sodium of 139, potassium 4.2, chloride 111, serum CO2 22, BUN 22, creatinine 0.93, glucose 139. Patient's procalcitonin level was low at 0.05. Patient's sputum culture was received, and blood cultures are negative at 24 hours. Patient is afebrile. Patient is maintained on a course of DuoNeb inhalation, budesonide inhalation, formoterol inhalation, and IV Solu-Medrol. Patient's vital signs remain stable. Progress note dated 06/23/2022. The patient is seen today in room 478. She's back on O2 at 2 L. The patient has no IV fluids. Her biggest complaint is chronic cough. She is on Tessalon Perles 200 mg 3 times a day, and Robitussin with codeine, started by us today. She is generally improved, other than the cough. No new labs today. Labs from June 22 are reviewed. Objective - Vital Signs Vital signs: Vital Signs Temp 98.1 F 06/23/22 07:04 Pulse 60 06/23/22 09:17 Resp 18 06/23/22 08:39 BP 112/67 06/23/22 07:04 Pulse Ox 95 06/23/22 09:04 FiO2 Intake & Output 06/22/22 06/23/22 06/23/22 18:59 06:59 18:59 Intake Total 300 Balance 300 Intake: Oral 300 Other: # Voids 3 4 - Exam No acute distress, oriented 3. Currently on 2 L. Frequent harsh cough. HEENT examination is grossly unremarkable. Neck supple. Full range of motion. No adenopathy thyromegaly or neck vein distention. Cardiovascular examination reveals regular rhythm rate. S1-S2 normal. No S3 or S4. No discernible murmur noted. Heart rate 60 bpm. Heart sounds are distant. Lungs reveal scattered diffuse rhonchi. Expiratory wheezes are noted. Slight prolongation on forced maneuver. No crackles. Abdomen soft bowel sounds are heard. No masses or tenderness. Extremities are intact. No cyanosis clubbing or edema. Skin is without rash or lesion. Neurologic examination is brief but nonfocal. - Labs CBC & Chem 7: 06/22/22 03:47 06/22/22 03:47 Labs: Microbiology - Last 24 Hours (Table) 06/20/22 12:55 Blood Culture - Preliminary Blood No Growth after 48 hours 06/20/22 13:10 Blood Culture - Preliminary Blood No Growth after 48 hours 06/21/22 12:18 Gram Stain - Preliminary Sputum Sputum Culture - Preliminary Assessment and Plan Assessment: Acute COPD exacerbation, without obvious pneumonia. Previous history of heavy tobacco use. History of CAD with previous stent placement. History of hyperlipidemia. History of hypertension. History of lichen planus. History of breast cancer. Plan: Plan dated 06/21/2022. The patient is placed on Pulmicort, and formoterol, at usual doses. In addition, the patient stays on albuterol sulfate and ipratropium bromide, 4 times a day and when necessary. The patient is on Levaquin empirically. The patient's getting Solu-Medrol 60 mg 4 times a day. Finally, we'll check a pro-c alcitonin level. The patient will need an outpatient evaluation, with complete pulmonary function testing. We will continue to follow make recommendations along the way. Plan dated 06/23/2022. The patient's primary issue is cough. The cough is mostly nonproductive but harsh. We had double-stranded Tessalon Perles, and Robitussin with codeine to her regimen. The rest of her medications are reviewed and are appropriate. Labs, x-rays, and medications are reviewed. Chest x-ray was normal. Prognosis is guarded. Hopeful discharge in the next 24 hours or so. Time with Patient: Less than 30
[2022-06-23] MEDS: guaiFENesin-DM 100-10MG/5ML 10 ML CUP PO PRN (10:50)
--- NOTE | 2022-06-23 14:00 | P.PN ---
Subjective Progress Note Date: 06/23/22 patient is 76-year-old lady with past medical significant for hypertension, history of tobacco abuse who presented to the ER because of worsening shortness of breath and cough. Patient states it has been going on for the last 3 months. Patient has seen her PCP and has taken a course of antibiotics. Patient denies any fever or chills. Complaining of shortness of breath on exertion. Patient admits to smoking for more than 50 years. Patient has not been diagnosed formally as having COPD. Because of this worsening shortness of breath patient consented to the ER of [place].Initial lab work in the ER showed WBC 15.8, hemoglobin 14.1, sodium 140, potassium 4.2, chloride 103, BUN 14, creatinine 0.93.D-dimer was elevated at 2.23,Influenza A and B are negative, and COVID-19 also negative. CTA chest showed no evidence of PE, showed pulmonary emphysema, no suspicious pulmonary mass. 06/22. Patient seen and examined. States shortness of breath is improving. Still has cough. Vital signs stable 06/23. Patient seen and examined. Still complaining of cough. Currently on 2 L of oxygen. Denies any shortness of breath at rest. Possible discharge in next 24 hours REVIEW OF SYSTEMS: CONSTITUTIONAL: No fever, no malaise,. CARDIOVASCULAR: No chest pain, no palpitations, no syncope. PULMONARY: Mentioned in HPI GASTROINTESTINAL: No diarrhea, no nausea, no vomiting, no abdominal pain. NEUROLOGICAL: No headaches, no weakness, PHYSICAL EXAMINATION: GENERAL: The patient is alert and oriented x3, not in any acute distress. Well developed, well nourished. HEENT: Pupils are round and equally reacting to light. EOMI. No scleral icterus. No conjunctival pallor. Normocephalic, atraumatic. No pharyngeal erythema. No thyromegaly. CARDIOVASCULAR: S1 and S2 present. No murmurs, rubs, or gallops. PULMONARY: Coarse breath some bilaterally, no wheeze audible ABDOMEN: Soft, nontender, nondistended, normoactive bowel sounds. No palpable organomegaly. MUSCULOSKELETAL: No joint swelling or deformity. EXTREMITIES: No cyanosis, clubbing, or pedal edema. NEUROLOGICAL: Gross neurological examination did not reveal any focal deficits. SKIN: No rashes. Assessment and plan Acute COPD exacerbation Hypertension Hyperlipidemia Plan; Continue oxygen supplementation Continue use of I-S Aggressive bronchopulmonary hygiene Continue breathing treatments Continue IV steroids Continue Levaquin Continue Robitussin and Tessalon Juan David Follow-up on pulmonary recommendations Objective - Vital Signs Vital signs: Vital Signs Temp 98.1 F 06/23/22 07:04 Pulse 64 06/23/22 12:31 Resp 18 06/23/22 08:39 BP 112/67 06/23/22 07:04 Pulse Ox 95 06/23/22 09:04 FiO2 Intake & Output 06/22/22 06/23/22 06/23/22 18:59 06:59 18:59 Intake Total 300 118 Balance 300 118 Intake: Oral 300 118 Other: # Voids 3 4 - Labs CBC & Chem 7: 06/22/22 03:47 06/22/22 03:47 Labs: Microbiology - Last 24 Hours (Table) 06/21/22 12:18 Gram Stain - Final Sputum Sputum Culture - Final 06/20/22 12:55 Blood Culture - Preliminary Blood No Growth after 48 hours 06/20/22 13:10 Blood Culture - Preliminary Blood No Growth after 48 hours
[2022-06-23] MEDS: LEVOFLOXACIN 750 MG TAB PO SCH (17:28)
[2022-06-23] MEDS: EZETIMIBE 10 MG TAB PO SCH (20:34)
[2022-06-23] MEDS: DONEPEZIL 10 MG TAB PO SCH (20:34)
[2022-06-23] MEDS: ACETAMINOPHEN TAB 500 MG TAB PO SCH (20:35)
[2022-06-23] MEDS: traZODone HCL 50 MG TAB PO SCH (20:35)
[2022-06-23] MEDS: ALPRAZolam 0.25 MG TAB PO SCH (20:35)
[2022-06-23] MEDS: BENZONATATE 100 MG CAP PO PRN (20:40)
[2022-06-24] MEDS: BENZONATATE 100 MG CAP PO PRN ×2 (04:23→14:51)
[2022-06-24] MEDS: traMADol 50 MG TAB PO PRN ×3 (08:36→20:41)
[2022-06-24] MEDS: IPRATROPIUM-ALBUTEROL 3 ML NEB INHALATION SCH ×4 (08:44→21:11)
[2022-06-24] MEDS: FORMOTEROL FUMARATE 20 MCG/2 ML NEBU INHALATION SCH (08:44)
[2022-06-24] MEDS: BUDESONIDE 1 MG/2 ML NEBU INHALATION SCH (08:45)
[2022-06-24 08:56] LABS: Basophils # (A) 0.01 X 10*3/uL (0.00-0.10); Basophils % (A) 0.1 %; Eosinophils # (A) 0 X 10*3/uL (0.04-0.35); Eosinophils % (A) 0 %; HCT 34.4 % (37.2-46.3); HGB 11.3 g/dL (12.0-15.0); Immature Grans, Automated 0.9 %; Lymphocytes # (A) 0.89 X 10*3/uL (0.90-5.00); MCHC 32.8 g/dL (32.0-37.0); MCV 94.5 fL (80.0-97.0); Monocytes # (A) 0.54 X 10*3/uL (0.20-1.00); Monocytes % (A) 5.5 %; NRBC Per 100 WBC 0 /100 WBCS (0.0-0.0); Neutrophils # (A) 8.32 X 10*3/uL (1.80-7.70); Neutrophils % (A) 84.5 %; Platelet Count 190 X 10*3/uL (140-440); RBC 3.64 X 10*6/uL (4.10-5.20); RDW 14.5 % (11.5-14.5); WBC 9.85 X 10*3/uL (4.50-10.00)
[2022-06-24 09:02] LABS: African American GFR (CKD) 62.9 (60.0-200.0); Albumin 3.4 g/dL (3.8-4.9); Albumin/Globulin Ratio 1.48 (1.60-3.17); Anion Gap 10.1 mmol/L (10.00-18.00); BUN/Creat Ratio 28.1 Ratio (12.00-20.00); Blood Urea Nitrogen 28.1 mg/dL (9.0-27.0); Calcium 8.4 mg/dL (8.7-10.3); Carbon Dioxide 24.9 mmol/L (20.0-27.5); Globulin 2.3 g/dL (1.6-3.3); Non-African American GFR(CKD) 54.3 (60.0-200.0); Potassium 4.4 mmol/L (3.5-5.5); Total Bilirubin 0.2 mg/dL (0.30-1.20); Total Protein 5.7 g/dL (6.2-8.2)
[2022-06-24] MEDS: ASPIRIN 81 MG PO SCH (09:06)
[2022-06-24] MEDS: PANTOPRAZOLE 40 MG TABLET PO SCH (09:06)
[2022-06-24] MEDS: ATORVASTATIN 20 MG TAB PO SCH (09:06)
[2022-06-24] MEDS: ENOXAPARIN 40 MG/0.4 ML SYRINGE SQ SCH (09:06)
[2022-06-24] MEDS: CITALOPRAM HYDROBROMIDE 20 MG TAB PO SCH (09:06)
[2022-06-24] MEDS: methylPREDNISolone SOD SUCCI 125 MG/2 ML VIAL IV SCH ×2 (09:07→12:40)
[2022-06-24] MEDS: MAGNESIUM OXIDE 400 MG TAB PO SCH (09:07)
[2022-06-24] MEDS: VITAMIN E (DL,TOCOPHERYL ACET) 400 UNIT (180 MG) CAP PO SCH (09:08)
[2022-06-24] MEDS: guaiFENesin-DM 100-10MG/5ML 10 ML CUP PO PRN ×2 (09:08→20:40)
--- NOTE | 2022-06-24 14:26 | P.PN ---
Subjective Progress Note Date: 06/24/22 Principal diagnosis: COPD exacerbation 76-year-old female who presented to the emergency department on June 20, complaining of cough, chest congestion, and shortness of breath. It has been going on for about 3 months or so. She did receive a short course of prednisone and some antibiotics, without benefit. The patient likely has underlying COPD. The patient smoked for 50 years. She does not smoke currently. The patient has never seen a lung doctor in the past. Her primary care physician is Dr. Barnhart. Currently, she is seen in room 478. She's getting saline at 100 mL an hour. She's also getting oxygen at 2 L by nasal cannula. The patient does have a frequent cough, no audible wheezing or use of accessory muscles. White count 8.8, 11.7, hematocrit 36.9, and platelet count 211,000. Sodium 139, potassium 4.4, chlorides 109, CO2 22, anion gap 8, BUN 20, creatinine 0.9. The rest of the comprehensive metabolic profile appears to be normal. Chest x-rays c onsistent with COPD. Computed tomography scan showed no evidence of pulmonary embolism, but did show evidence of pulmonary emphysema. In addition there are some basilar interstitial changes. Evaluating this patient today 06/22/2022 in follow-up on a general medical floor. Patient is currently sitting, on room air, in no acute distress. Patient's lung sounds to auscultations have much better today. She continues to have a persistent nonproductive cough. No new chest x-ray to review today. CBC from today shows mild leukocytosis with a WBC count of 12.9, hemoglobin 11, hematocrit 33.4, platelets 179,000. Patient's BMP from today shows a sodium of 139, potassium 4.2, chloride 111, serum CO2 22, BUN 22, creatinine 0.93, glucose 139. Patient's procalcitonin level was low at 0.05. Patient's sputum culture was received, and blood cultures are negative at 24 hours. Patient is afebrile. Patient is maintained on a course of DuoNeb inhalation, budesonide inhalation, formoterol inhalation, and IV Solu-Medrol. Patient's vital signs remain stable. Progress note dated 06/23/2022. The patient is seen today in room 478. She's back on O2 at 2 L. The patient has no IV fluids. Her biggest complaint is chronic cough. She is on Tessalon Perles 200 mg 3 times a day, and Robitussin with codeine, started by us today. She is generally improved, other than the cough. No new labs today. Labs from June 22 are reviewed. I'm reevaluating this patient today 06/24/2022 in follow-up on the general medical floor. Patient is sitting up in chair, on room air, in no acute distress. Patient states that her breathing is lot better today. She continues to have a persistent nonproductive cough. She has Tessalon Perles and Robitussin DM ordered. No new chest x-ray to review today. Final sputum culture was negative. Patient is afebrile. CBC from today shows a WBC count 9.85, hemoglobin 11.3, hematocrit 34.4, platelets 190,000. BMP shows a sodium of 139, potassium 4.4, chloride 104, serum CO2 25, BUN 28.1, creatinine 1, glucose 108. No IV maintenance fluids infusing. She continues receiving DuoNeb inhalation, budesonide inhalation, formoterol inhalation, IV Solu-Medrol. Vital signs remain stable. Objective - Vital Signs Vital signs: Vital Signs Temp 98.1 F 06/24/22 07:20 Pulse 62 06/24/22 12:46 Resp 18 06/24/22 07:43 BP 128/70 06/24/22 07:20 Pulse Ox 95 06/24/22 08:45 FiO2 Intake & Output 06/23/22 06/24/22 06/24/22 18:59 06:59 18:59 Intake Total 118 Output Total 0 Balance 118 0 Intake: Oral 118 Output: Urine 0 Other: Voiding Method Toilet # Voids 1 - Exam A 76-year-old female , no acute distress, alert and oriented 3. HEENT examination is grossly unremarkable. Neck supple. Full range of motion. No adenopathy thyromegaly or neck vein distention. Cardiovascular examination reveals regular rhythm rate. S1-S2 normal. No S3 or S4. No discernible murmur noted. Heart rate 79 bpm. Lungs reveal scattered rhonchi. No wheezes. No crackles. Patient has a frequent nonproductive cough. Breath sounds are equal bilaterally with increased aeration. Abdomen soft bowel sounds are heard. No masses or tenderness. Extremities are intact. No cyanosis clubbing or edema. Skin is without rash or lesion. Neurologic examination is brief but nonfocal. - Labs CBC & Chem 7: 06/24/22 05:21 06/24/22 05:21 Labs: Abnormal Lab Results - Last 24 Hours (Table) 06/24/22 06/24/22 Range/Units 05:21 05:21 RBC 3.64 L (4.10-5.20) X 10*6/uL Hgb 11.3 L (12.0-15.0) g/dL Hct 34.4 L (37.2-46.3) % Immature Gran # 0.09 H (0.00-0.04) X 10*3/uL Neutrophils # 8.32 H (1.80-7.70) X 10*3/uL Lymphocytes # 0.89 L (0.90-5.00) X 10*3/uL Eosinophils # 0 L (0.04-0.35) X 10*3/uL BUN 28.1 H (9.0-27.0) mg/dL Est GFR (CKD-EPI)NonAf 54.3 L (60.0-200.0) BUN/Creatinine Ratio 28.10 H (12.00-20.00) Ratio Calcium 8.4 L (8.7-10.3) mg/dL Total Bilirubin 0.20 L (0.30-1.20) mg/dL Total Protein 5.7 L (6.2-8.2) g/dL Albumin 3.4 L (3.8-4.9) g/dL Albumin/Globulin Ratio 1.48 L (1.60-3.17) g/dL Microbiology - Last 24 Hours (Table) 06/20/22 12:55 Blood Culture - Preliminary Blood No Growth after 72 hours 06/20/22 13:10 Blood Culture - Preliminary Blood No Growth after 72 hours 06/21/22 12:18 Gram Stain - Final Sputum Sputum Culture - Final Assessment and Plan Assessment: Acute COPD exacerbation, without obvious pneumonia. Previous history of heavy tobacco use. History of CAD with previous stent placement. History of hyperlipidemia. History of hypertension. History of lichen planus. History of breast cancer. Plan: Patient's medications and labs reviewed. On room air Continue bronchodilators We'll discontinue budesonide and formoterol inhalation. Will start Symbicort inhaler. Discontinue IV Solu-Medrol. We will start prednisone taper From a pulmonary standpoint, patient is cleared for discharge. Patient will need follow up in the office for full PFT I have personally seen and examined the patient, performed the documentation and the assessment and plan as written. Number of minutes spent on the visit: 10. Time with Patient: Less than 30
[2022-06-24] MEDS: LEVOFLOXACIN 750 MG TAB PO SCH (17:07)
--- NOTE | 2022-06-24 18:40 | P.PN ---
Subjective Progress Note Date: 06/24/22 76-year-old lady with past medical significant for hypertension, history of tobacco abuse who presented to the ER because of worsening shortness of breath and cough. Patient states it has been going on for the last 3 months. Patient has seen her PCP and has taken a course of antibiotics. Patient denies any fever or chills. Complaining of shortness of breath on exertion. Patient admits to smoking for more than 50 years. Patient has not been diagnosed formally as having COPD. Because of this worsening shortness of breath patient consented to the ER of [place].Initial lab work in the ER showed WBC 15.8, hemoglobin 14.1, sodium 140, potassium 4.2, chloride 103, BUN 14, creatinine 0.93.D-dimer was elevated at 2.23,Influenza A and B are negative, and COVID-19 also negative. CTA chest showed no evidence of PE, showed pulmonary emphysema, no suspicious pulmonary mass. Objective - Vital Signs Vital signs: Vital Signs Temp 98.1 F 06/24/22 07:20 Pulse 72 06/24/22 08:57 Resp 18 06/24/22 07:43 BP 128/70 06/24/22 07:20 Pulse Ox 95 06/24/22 08:45 FiO2 Intake & Output 06/23/22 06/24/22 06/24/22 18:59 06:59 18:59 Intake Total 118 Output Total 0 Balance 118 0 Intake: Oral 118 Output: Urine 0 Other: Voiding Method Toilet # Voids 1 - Exam PHYSICAL EXAMINATION: GENERAL: The patient is alert and oriented x3, not in any acute distress. Well developed, well nourished. HEENT: Pupils are round and equally reacting to light. EOMI. No scleral icterus. No conjunctival pallor. Normocephalic, atraumatic. No pharyngeal erythema. No thyromegaly. CARDIOVASCULAR: S1 and S2 present. No murmurs, rubs, or gallops. PULMONARY: Coarse breath some bilaterally, no wheeze audible ABDOMEN: Soft, nontender, nondistended, normoactive bowel sounds. No palpable organomegaly. MUSCULOSKELETAL: No joint swelling or deformity. EXTREMITIES: No cyanosis, clubbing, or pedal edema. NEUROLOGICAL: Gross neurological examination did not reveal any focal deficits. SKIN: No rashes. pulmonary recommendations - Labs CBC & Chem 7: 06/24/22 05:21 06/24/22 05:21 Labs: Abnormal Lab Results - Last 24 Hours (Table) 06/24/22 06/24/22 Range/Units 05:21 05:21 RBC 3.64 L (4.10-5.20) X 10*6/uL Hgb 11.3 L (12.0-15.0) g/dL Hct 34.4 L (37.2-46.3) % Immature Gran # 0.09 H (0.00-0.04) X 10*3/uL Neutrophils # 8.32 H (1.80-7.70) X 10*3/uL Lymphocytes # 0.89 L (0.90-5.00) X 10*3/uL Eosinophils # 0 L (0.04-0.35) X 10*3/uL BUN 28.1 H (9.0-27.0) mg/dL Est GFR (CKD-EPI)NonAf 54.3 L (60.0-200.0) BUN/Creatinine Ratio 28.10 H (12.00-20.00) Ratio Calcium 8.4 L (8.7-10.3) mg/dL Total Bilirubin 0.20 L (0.30-1.20) mg/dL Total Protein 5.7 L (6.2-8.2) g/dL Albumin 3.4 L (3.8-4.9) g/dL Albumin/Globulin Ratio 1.48 L (1.60-3.17) g/dL Microbiology - Last 24 Hours (Table) 06/20/22 12:55 Blood Culture - Preliminary Blood No Growth after 72 hours 06/20/22 13:10 Blood Culture - Preliminary Blood No Growth after 72 hours 06/21/22 12:18 Gram Stain - Final Sputum Sputum Culture - Final Assessment and Plan Assessment: Assessment and plan Acute COPD exacerbation Hypertension Hyperlipidemia Plan; Continue oxygen supplementation Continue use of I-S Aggressive bronchopulmonary hygiene Continue breathing treatments Continue IV steroids Continue Levaquin Continue Robitussin and Tesángelon Juan David Follow-up on pulmonary recommendations
[2022-06-24] MEDS: ACETAMINOPHEN TAB 500 MG TAB PO SCH (20:39)
[2022-06-24] MEDS: EZETIMIBE 10 MG TAB PO SCH (20:40)
[2022-06-24] MEDS: DONEPEZIL 10 MG TAB PO SCH (20:40)
[2022-06-24] MEDS: traZODone HCL 50 MG TAB PO SCH (20:40)
[2022-06-24] MEDS: ALPRAZolam 0.25 MG TAB PO SCH (20:40)
[2022-06-24] MEDS: SYMBICORT 160-4.5 MCG INHALER INHALATION SCH (21:11)
[2022-06-25 02:44] VITALS: RESP 16
[2022-06-25] MEDS: PANTOPRAZOLE 40 MG TABLET PO SCH (06:04)
[2022-06-25] MEDS: IPRATROPIUM-ALBUTEROL 3 ML NEB INHALATION SCH ×3 (07:51→16:07)
[2022-06-25] MEDS: SYMBICORT 160-4.5 MCG INHALER INHALATION SCH (07:51)
--- NOTE | 2022-06-25 08:00 | P.CRDCN ---
History of Present Illness Consult date: 06/25/22 Chief complaint: Shortness of breath History of present illness: The patient is a pleasant 76-year-old female patient with a past medical history significant for CAD with prior stenting was performed in long time ago with unknown details at this point as well as hypertension and dyslipidemia and COPD was admitted to the hospital with increasing shortness of breath associated with cough and she was diagnosed with a pneumonia as well as COPD exacerbation. No symptoms of chest pain or chest discomfort and no dizziness or lightheadedness and no feeling of heart racing or fluttering and no presyncope or syncope. The patient felt better over the last few days in the hospital. We consulted to see the patient because of cardiac arrhythmia. It was noted on the monitor that the patient could have ventricular arrhythmia during that she was completely asymptomatic in terms of heart racing or fluttering or dizziness or lightheadedness. And she remains asymptomatic and dermal chest pain or chest discomfort. Her electrolytes are within normal limits. The rest of her blood work including hemoglobin has been within normal limits. From the cardiovascular standpoint of view, the patient can be discharged home. No need for any further cardiac intervention at this point. We'll follow-up with the patient as an outpatient. The examination is remarkable for regular rhythm with the patient breathing sounds bilaterally and no lower extremities edema noted. Assessment COPD exacerbation Pneumonia which has improved Coronary artery disease Hypertension Dyslipidemia Cardiac arrhythmia in terms off ventricular bigeminy and trigeminy, the patient was asymptomatic Plan Continue the current medical regimen No need for any further cardiac workup at this point The patient can be discharged home in the next 24 hours Past Medical History Past Medical History: Cancer, Hyperlipidemia, Hypertension, Osteoarthritis (OA), Skin Disorder Additional Past Medical History / Comment(s): lichen planus, breast cancer x 2 History of Any Multi-Drug Resistant Organisms: MRSA Date of last positivie culture/infection: 2011 MDRO Source:: genitals Past Surgical History: Breast Surgery, Heart Catheterization With Stent, Tonsillectomy Additional Past Surgical History / Comment(s): left breast lumpectomy, rt breast lumpectomy, [place] cataracts Past Anesthesia/Blood Transfusion Reactions: Motion Sickness Additional Past Anesthesia/Blood Transfusion Reaction / Comment(s): vertigo on and off Date of Last Stent Placement:: 2012 Past Psychological History: No Psychological Hx Reported Smoking Status: Never smoker Past Alcohol Use History: None Reported, Rare Past Drug Use History: None Reported - Past Family History Father Family Medical History: Cancer Brother(s) Family Medical History: Cancer Sister(s) Family Medical History: Cancer Medications and Allergies Home Medications Medication Instructions Recorded Confirmed Type ALPRAZolam [Xanax] 0.25 mg PO HS 10/25/16 06/20/22 History Acetaminophen 1,000 mg PO HS 10/25/16 06/20/22 History Aspirin [Adult Low Dose Aspirin EC] 81 mg PO DAILY 10/25/16 06/20/22 History Candesartan Cilexetil [Atacand] 32 mg PO DAILY 10/25/16 06/20/22 History Citalopram Hydrobromide 20 mg PO DAILY 10/25/16 06/20/22 History [Citalopram HBr] Ezetimibe [Zetia] 10 mg PO HS 10/25/16 06/20/22 History Omeprazole [PriLOSEC] 40 mg PO DAILY 10/25/16 06/20/22 History Ubidecarenone [Co Q-10] 100 mg PO DAILY 10/25/16 06/20/22 History Vitamin E (Dl,Tocopheryl Acet) 400 unit PO DAILY 10/25/16 06/20/22 History [Vitamin E] amLODIPine [Norvasc] 10 mg PO DAILY 10/25/16 06/20/22 History traZODone HCL 50 mg PO HS 10/25/16 06/20/22 History Donepezil [Aricept] 10 mg PO HS 06/20/22 06/20/22 History Magnesium Oxide 400 mg PO DAILY 06/20/22 06/20/22 History Rosuvastatin [Crestor] 10 mg PO DAILY 06/20/22 06/20/22 History Turmeric Root Extract [Turmeric] 500 mg PO DAILY 06/20/22 06/20/22 History hydrALAZINE HCL [Apresoline] 50 mg PO BID@1200,1800 06/20/22 06/20/22 History rOPINIRole HCL [Requip] 1 mg PO HS 06/20/22 06/20/22 History traMADol HCL 50 mg PO Q6H PRN 06/20/22 06/20/22 History Allergies Allergy/AdvReac Type Severity Reaction Status Date / Time No Known Allergies Allergy Verified 06/20/22 14:26 Physical Exam Vitals: Vital Signs Temp Pulse Pulse Resp BP BP Pulse Ox 06/25/22 07:02 98.1 F 52 L 16 121/73 98 06/25/22 01:56 97.6 F 56 L 16 132/71 93 L 06/24/22 21:26 68 06/24/22 21:12 64 06/24/22 20:04 98.4 F 59 L 15 114/69 93 L 06/24/22 15:02 56 L 135/65 06/24/22 14:00 97.9 F 62 20 93/55 95 06/24/22 12:46 62 06/24/22 12:36 62 06/24/22 08:57 72 06/24/22 08:45 66 95 Intake and Output 06/24/22 06/25/22 06/25/22 22:59 06:59 14:59 Output Total 0 Balance 0 Output: Urine 0 Other: Voiding Method Toilet # Voids 3 Results 06/24/22 05:21 06/24/22 05:21 Cardiac Enzymes 06/24/22 Range/Units 05:21 AST 35 (13-35) U/L CBC 06/24/22 Range/Units 05:21 WBC 9.85 (4.50-10.00) X 10*3/uL RBC 3.64 L (4.10-5.20) X 10*6/uL Hgb 11.3 L (12.0-15.0) g/dL Hct 34.4 L (37.2-46.3) % Plt Count 190 (140-440) X 10*3/uL Comprehensive Metabolic Panel 06/24/22 Range/Units 05:21 Sodium 139 (135-145) mmol/L Potassium 4.4 (3.5-5.5) mmol/L Chloride 104 (96-109) mmol/L Carbon Dioxide 24.9 (20.0-27.5) mmol/L BUN 28.1 H (9.0-27.0) mg/dL Creatinine 1.0 (0.6-1.5) mg/dL Glucose 108 (70-110) mg/dL Calcium 8.4 L (8.7-10.3) mg/dL AST 35 (13-35) U/L ALT 40 (8-44) U/L Alkaline Phosphatase 57 (41-126) U/L Total Protein 5.7 L (6.2-8.2) g/dL Albumin 3.4 L (3.8-4.9) g/dL Current Medications Generic Name Dose Route Start Last Admin Trade Name Freq PRN Reason Stop Dose Admin Acetaminophen 1,000 mg 06/20/22 21:00 06/24/22 20:39 Acetaminophen Tab 500 Mg Tab PO 1,000 mg HS CAROLIN Administration Albuterol/Ipratropium 3 ml 06/21/22 12:00 06/24/22 21:11 Ipratropium-Albuterol 3 Ml Neb INHALATION 3 ml RT-QID CAROLIN Administration Alprazolam 0.25 mg 06/20/22 21:00 06/24/22 20:40 Alprazolam 0.25 Mg Tab PO 0.25 mg HS CAROLIN Administration Aspirin 81 mg 06/21/22 09:00 06/24/22 09:06 Aspirin 81 Mg PO 81 mg DAILY CAROLIN Administration Atorvastatin Calcium 20 mg 06/21/22 09:00 06/24/22 09:06 Atorvastatin 20 Mg Tab PO 20 mg DAILY CAROLIN Administration Benzonatate 200 mg 06/23/22 08:51 06/24/22 14:51 Benzonatate 100 Mg Cap PO 200 mg TID PRN Administration Cough Budesonide/Formoterol Fumarate 2 puff 06/24/22 20:00 06/24/22 21:11 Symbicort 160-4.5 Mcg Inhaler INHALATION 2 puff RT-BID CAROLIN Administration Citalopram Hydrobromide 20 mg 06/21/22 09:00 06/24/22 09:06 Citalopram Hydrobromide 20 Mg Tab PO 20 mg DAILY CAROLIN Administration Donepezil HCl 10 mg 06/20/22 21:00 06/24/22 20:40 Donepezil 10 Mg Tab PO 10 mg HS CAROLIN Administration Ezetimibe 10 mg 06/20/22 21:00 06/24/22 20:40 Ezetimibe 10 Mg Tab PO 10 mg HS CAROLIN Administration Enoxaparin Sodium 40 mg 06/21/22 09:00 06/24/22 09:06 Enoxaparin 40 Mg/0.4 Ml Syringe SQ 40 mg DAILY CAROLIN Administration Guaifenesin/Dextromethorphan 10 ml 06/23/22 08:51 06/24/22 20:40 Guaifenesin-Dm 100-10mg/5ml 10 Ml Cup PO 10 ml Q8HR PRN Administration Cough Levofloxacin 750 mg 06/21/22 18:00 06/24/22 17:07 Levofloxacin 750 Mg Tab PO 750 mg DAILY@1800 CAROLIN Administration Protocol Magnesium Oxide 400 mg 06/21/22 09:00 06/24/22 09:07 Magnesium Oxide 400 Mg Tab PO 400 mg DAILY CAROLIN Administration Miscellaneous Information 1 each 06/20/22 20:22 Pneumonia Protocol Utilized 1 Each Misc PO ONCE PRN Per Protocol Pantoprazole Sodium 40 mg 06/21/22 07:30 06/25/22 06:04 Pantoprazole 40 Mg Tablet PO 40 mg [id number] CAROLIN Administration Prednisone 40 mg 06/25/22 09:00 Prednisone 20 Mg Tab PO DAILY CAROLIN Ropinirole HCl 1 mg 06/20/22 21:00 06/24/22 20:40 Ropinirole Hcl 1 Mg Tab PO 1 mg HS CAROLIN Administration Tramadol HCl 50 mg 06/20/22 20:20 06/24/22 20:41 Tramadol 50 Mg Tab PO 50 mg Q6H PRN Administration Pain Trazodone HCl 50 mg 06/20/22 21:00 06/24/22 20:40 Trazodone Hcl 50 Mg Tab PO 50 mg HS CAROLIN Administration Vitamin E 400 unit 06/21/22 09:00 06/24/22 09:08 Vitamin E (Dl,Tocopheryl Acet) 400 Unit (180 Mg) Cap PO 400 unit DAILY CAROLIN Administration Intake and Output 06/24/22 06/25/22 06/25/22 22:59 06:59 14:59 Output Total 0 Balance 0 Output: Urine 0 Other: Voiding Method Toilet # Voids 3 06/24/22 05:21 06/24/22 05:21
[2022-06-25] MEDS ORDERED: predniSONE 20 MG TAB PO SCH (09:00)
[2022-06-25] MEDS: ENOXAPARIN 40 MG/0.4 ML SYRINGE SQ SCH (09:23)
[2022-06-25] MEDS: VITAMIN E (DL,TOCOPHERYL ACET) 400 UNIT (180 MG) CAP PO SCH (09:23)
[2022-06-25] MEDS: ASPIRIN 81 MG PO SCH (09:24)
[2022-06-25] MEDS: MAGNESIUM OXIDE 400 MG TAB PO SCH (09:24)
[2022-06-25] MEDS: CITALOPRAM HYDROBROMIDE 20 MG TAB PO SCH (09:24)
[2022-06-25] MEDS: ATORVASTATIN 20 MG TAB PO SCH (09:24)
[2022-06-25] MEDS: traMADol 50 MG TAB PO PRN (10:28)
--- NOTE | 2022-06-25 12:59 | P.PN ---
Subjective Progress Note Date: 06/25/22 Principal diagnosis: Shortness of breath. COPD exacerbation 76-year-old female who presented to the emergency department on June 20, complaining of cough, chest congestion, and shortness of breath. It has been going on for about 3 months or so. She did receive a short course of prednisone and some antibiotics, without benefit. The patient likely has underlying COPD. The patient smoked for 50 years. She does not smoke currently. The patient has never seen a lung doctor in the past. Her primary care physician is Dr. Barnhart. Currently, she is seen in room 478. She's getting saline at 100 mL an hour. She's also getting oxygen at 2 L by nasal cannula. The patient does have a frequent cough, no audible wheezing or use of accessory muscles. White count 8.8, 11.7, hematocrit 36.9, and platelet count 211,000. Sodium 139, potassium 4.4, chlorides 109, CO2 22, anion gap 8, BUN 20, creatinine 0.9. The rest of the comprehensive metabolic profile appears to be normal. Chest x-rays consistent with COPD. Computed tomography scan showed no evidence of pulmonary embolism, but did show evidence of pulmonary emphysema. In addition there are some basilar interstitial changes. Evaluating this patient today 06/22/2022 in follow-up on a general medical floor. Patient is currently sitting, on room air, in no acute distress. Patient's lung sounds to auscultations have much better today. She continues to have a persistent nonproductive cough. No new chest x-ray to review today. CBC from today shows mild leukocytosis with a WBC count of 12.9, hemoglobin 11, hematocrit 33.4, platelets 179,000. Patient's BMP from today shows a sodium of 139, potassium 4.2, chloride 111, serum CO2 22, BUN 22, creatinine 0.93, glucose 139. Patient's procalcitonin level was low at 0.05. Patient's sputum culture was received, and blood cultures are negative at 24 hours. Patient is afebrile. Patient is maintained on a course of DuoNeb inhalation, budesonide inhalation, formoterol inhalation, and IV Solu-Medrol. Patient's vital signs remain stable. Progress note dated 06/23/2022. The patient is seen today in room 478. She's back on O2 at 2 L. The patient has no IV fluids. Her biggest complaint is chronic cough. She is on Tessalon Perles 200 mg 3 times a day, and Robitussin with codeine, started by us today. She is generally improved, other than the cough. No new labs today. Labs from June 22 are reviewed. Progress note dated 06/25/2022. The patient is again seen in room 478. The patient's on room air. For some reason, the patient was not discharged yesterday. Clinically, the patient is ready for discharge. She's on room air. She's not receiving any IV fluids. Her breathing is much improved. Her cough is nearly completely gone. No new labs today. Labs from June 24 are reviewed. Objective - Vital Signs Vital signs: Vital Signs Temp 98.1 F 06/25/22 07:02 Pulse 52 L 06/25/22 11:46 Resp 16 06/25/22 07:02 BP 121/73 06/25/22 07:02 Pulse Ox 97 06/25/22 07:54 FiO2 Intake & Output 06/24/22 06/25/22 06/25/22 18:59 06:59 18:59 Output Total 0 Balance 0 Output: Urine 0 Other: Voiding Method Toilet Toilet # Voids 3 1 - Exam No acute distress, oriented 3. Currently on room air. Cough is much improved. HEENT examination is grossly unremarkable. Neck supple. Full range of motion. No adenopathy thyromegaly or neck vein distention. Cardiovascular examination reveals regular rhythm rate. S1-S2 normal. No S3 or S4. No discernible murmur noted. Heart rate 52 bpm. Lungs reveal much improved breath sounds. Minimal rhonchi. No wheezes or crackles. Breath sounds equal bilaterally. Room air saturation is 97%. Abdomen soft bowel sounds are heard. No masses or tenderness. Extremities are intact. No cyanosis clubbing or edema. Skin is without rash or lesion. Neurologic examination is brief but nonfocal. - Labs CBC & Chem 7: 06/24/22 05:21 06/24/22 05:21 Labs: Microbiology - Last 24 Hours (Table) 06/20/22 12:55 Blood Culture - Preliminary Blood No Growth after 96 hours 06/20/22 13:10 Blood Culture - Preliminary Blood No Growth after 96 hours Assessment and Plan Assessment: Acute COPD exacerbation, without obvious pneumonia. Previous history of heavy tobacco use. History of CAD with previous stent placement. History of hyperlipidemia. History of hypertension. History of lichen planus. History of breast cancer. Plan: Plan dated 06/21/2022. The patient is placed on Pulmicort, and formoterol, at usual doses. In addition, the patient stays on albuterol sulfate and ipratropium bromide, 4 times a day and when necessary. The patient is on Levaquin empirically. The patient's getting Solu-Medrol 60 mg 4 times a day. Finally, we'll check a pro- calcitonin level. The patient will need an outpatient evaluation, with complete pulmonary function testing. We will continue to follow make recommendations along the way. Plan dated 06/23/2022. The patient's primary issue is cough. The cough is mostly nonproductive but harsh. We had double-stranded Tessalon Perles, and Robitussin with codeine to h er regimen. The rest of her medications are reviewed and are appropriate. Labs, x-rays, and medications are reviewed. Chest x-ray was normal. Prognosis is guarded. Hopeful discharge in the next 24 hours or so. Plan dated 06/28/2022. The patient is ready for discharge in our opinion. The patient's much improved. No additional recommendations are made. The patient will follow up with us af ter being discharged. Her cough is much improved. Her breathing is much improved. Labs, x-rays, and medications are reviewed. Time with Patient: Less than 30
[2022-06-25 13:23] VITALS: BMI 24.4
[2022-06-25 14:07] VITALS: BP 92/58; TEMP 98.2
[2022-06-25] MEDS: BENZONATATE 100 MG CAP PO PRN (14:16)
[2022-06-25 14:50] LABS: African American GFR (CKD) 65 (>60 ml/min/1.73 sqM); Anion Gap 6 mmol/L; Blood Urea Nitrogen 29 mg/dL (7-17); Carbon Dioxide 25 mmol/L (22-30); Chloride 102 mmol/L (98-107); Glucose 154 mg/dL (74-99); Non-African American GFR(CKD) 57 (>60 ml/min/1.73 sqM); Sodium 133 mmol/L (137-145)
[2022-06-25 14:55] LABS: Potassium 4.6 mmol/L (3.5-5.1)
[2022-06-25] MEDS ORDERED: MAGNESIUM SULFATE-D5W PMX 1 GM in DEXTROSE/WATER 1 100ML.BAG IVPB ONE (15:52)
[2022-06-25 16:20] VITALS: PULSE 58
--- NOTE | 2022-06-25 18:57 | P.DS ---
Providers Date of admission: 06/20/22 20:26 Expected date of discharge: 06/25/22 Attending physician: Dulce Pink Consults: 06/20/22 20:22 Consult Physician Routine Consulting Provider: Kulwinder Puir Consult Reason/Comments: pneumonia, copd Do you want consulting provider notified?: Yes 06/24/22 11:56 Consult Physician Routine Consulting Provider: Axel Morrissey Consult Reason/Comments: irregular rhythm,episode of vfib Do you want consulting provider notified?: Yes Primary care physician: [facility] Course: 76-year-old female who presented to the emergency department on June 20, complaining of cough, chest congestion, and shortness of breath. It has been going on for about 3 months or so. She did receive a short course of prednisone and some antibiotics, without benefit. The patient likely has underlying COPD. The patient smoked for 50 years. She does not smoke currently. The patient has never seen a lung doctor in the past. Her primary care physician is Dr. Barnhart. Currently, she is seen in room 478. She's getting saline at 100 mL an hour. She's also getting oxygen at 2 L by nasal cannula. The patient does have a frequent cough, no audible wheezing or use of accessory muscles. White count 8.8, 11.7, hematocrit 36.9, and platelet count 211,000. Sodium 139, potassium 4.4, chlorides 109, CO2 22, anion gap 8, BUN 20, creatinine 0.9. The rest of the comprehensive metabolic profile appears to be normal. Chest x-rays consistent with COPD. Computed tomography scan showed no evidence of pulmonary embolism, but did show evidence of pulmonary emphysema. In addition there are some basilar interstitial changes. Evaluating this patient today 06/22/2022 in follow-up on a general medical floor. Patient is currently sitting, on room air, in no acute distress. Patient's lung sounds to auscultations have much better today. She continues to have a persistent nonproductive cough. No new chest x-ray to review today. CBC from today shows mild leukocytosis with a WBC count of 12.9, hemoglobin 11, hematocrit 33.4, platelets 179,000. Patient's BMP from today shows a sodium of 139, potassium 4.2, chloride 111, serum CO2 22, BUN 22, creatinine 0.93, glucose 139. Patient's procalcitonin level was low at 0.05. Patient's sputum culture was received, and blood cultures are negative at 24 hours. Patient is afebrile. Patient is maintained on a course of DuoNeb inhalation, budesonide inhalation, formoterol inhalation, and IV Solu-Medrol. Patient's vital signs remain stable. Progress note dated 06/23/2022. The patient is seen today in room 478. She's back on O2 at 2 L. The patient has no IV fluids. Her biggest complaint is chronic cough. She is on Tessalon Perles 200 mg 3 times a day, and Robitussin with codeine, started by us today. She is generally improved, other than the cough. No new labs today. Labs from June 22 are reviewed. Progress note dated 06/25/2022. The patient is again seen in room 478. The patient's on room air. For some reason, the patient was not discharged yesterday. Clinically, the patient is ready for discharge. She's on room air. She's not receiving any IV fluids. Her breathing is much improved. Her cough is nearly completely gone. No new labs today. Labs from June 24 are reviewed. Patient was noted some arrhythmias on telemetry; cardiology was consulted and recommending patient safe for discharge with recommendations to follow-up with cardiology as an outpatient Patient Condition at Discharge: Fair Plan - Discharge Summary Discharge Rx Participant: No New Discharge Prescriptions: New predniSONE [Deltasone] 40 mg PO DAILY 4 Days #8 tab Benzonatate [Tessalon Perles] 200 mg PO TID PRN 3 Days #9 cap PRN Reason: Cough Continue Vitamin E (Dl,Tocopheryl Acet) [Vitamin E] 400 unit PO DAILY Ubidecarenone [Co Q-10] 100 mg PO DAILY Aspirin [Adult Low Dose Aspirin EC] 81 mg PO DAILY traZODone HCL 50 mg PO HS Ezetimibe [Zetia] 10 mg PO HS Omeprazole [PriLOSEC] 40 mg PO DAILY Citalopram Hydrobromide [Citalopram HBr] 20 mg PO DAILY Candesartan Cilexetil [Atacand] 32 mg PO DAILY amLODIPine [Norvasc] 10 mg PO DAILY ALPRAZolam [Xanax] 0.25 mg PO HS Acetaminophen 1,000 mg PO HS Donepezil [Aricept] 10 mg PO HS hydrALAZINE HCL [Apresoline] 50 mg PO BID@1200,1800 Magnesium Oxide 400 mg PO DAILY traMADol HCL 50 mg PO Q6H PRN PRN Reason: Pain Rosuvastatin [Crestor] 10 mg PO DAILY Turmeric Root Extract [Turmeric] 500 mg PO DAILY rOPINIRole HCL [Requip] 1 mg PO HS Discharge Medication List ALPRAZolam [Xanax] 0.25 mg PO HS 10/25/16 [History] Acetaminophen 1,000 mg PO HS 10/25/16 [History] Aspirin [Adult Low Dose Aspirin EC] 81 mg PO DAILY 10/25/16 [History] Candesartan Cilexetil [Atacand] 32 mg PO DAILY 10/25/16 [History] Citalopram Hydrobromide [Citalopram HBr] 20 mg PO DAILY 10/25/16 [History] Ezetimibe [Zetia] 10 mg PO HS 10/25/16 [History] Omeprazole [PriLOSEC] 40 mg PO DAILY 10/25/16 [History] Ubidecarenone [Co Q-10] 100 mg PO DAILY 10/25/16 [History] Vitamin E (Dl,Tocopheryl Acet) [Vitamin E] 400 unit PO DAILY 10/25/16 [History] amLODIPine [Norvasc] 10 mg PO DAILY 10/25/16 [History] traZODone HCL 50 mg PO HS 10/25/16 [History] Donepezil [Aricept] 10 mg PO HS 06/20/22 [History] Magnesium Oxide 400 mg PO DAILY 06/20/22 [History] Rosuvastatin [Crestor] 10 mg PO DAILY 06/20/22 [History] Turmeric Root Extract [Turmeric] 500 mg PO DAILY 06/20/22 [History] hydrALAZINE HCL [Apresoline] 50 mg PO BID@1200,1800 06/20/22 [History] rOPINIRole HCL [Requip] 1 mg PO HS 06/20/22 [History] traMADol HCL 50 mg PO Q6H PRN 06/20/22 [History] Benzonatate [Tessalon Perles] 200 mg PO TID PRN 3 Days #9 cap 01/21/23 [Rx] predniSONE [Deltasone] 40 mg PO DAILY 4 Days #8 tab 06/25/22 [Rx] Follow up Appointment(s)/Referral(s): Kulwinder Puri DO [Doctor of Osteopathic Medicine] - 1 Week Discharge Disposition: HOME SELF-CARE
--- NOTE | 2022-06-28 08:24 | CDI ---
Documentation Clarification Form Date: 06/28/2022 8:13:06 AM From: Julissa Mckeon Admit Date: 06/20/2022 8:26:00 PM Patient Name: Isabella Tenorio Visit Number: [id number] Discharge Date: 06/25/2022 6:09:00 PM ATTENTION: The Clinical Documentation Specialists (CDI) and [facility] Coding Staff appreciate your assistance in clarifying documentation. Please respond to the clarification below the line at the bottom and electronically sign. The CDI & [facility] Coding staff will review the response and follow-up if needed. Please note: Queries are made part of the Legal Health Record. If you have any questions, please contact the author of this message via ITS. Dr. Wade Pool Conflicting documentation has been found in the medical record. As attending physician, please provide clarification. ED note pneumonia is the clinical impression "The patient appears to have pneumonia. " "Due to her pneumonia, relative hypotension, SOB, cough, likely COPD exacerbation and lightheadedness. I was felt she needed admission to the hospital." Per cardiac consult "Pneumonia which has improved." Per Pulmonology consult COPD exacerbation without obvious pneumonia. History/Risk Factors: COPD exacerbation Clinical Indicators: CXR diffuse pulmonic infiltrate Treatment: Levaquin and Symbicort Please clarify which diagnosis is most appropriate: [ ] Pneumonia [ x ] Pneumonia ruled out [ ] Other (please specify) [ ] Unable to determine MTDD
== END 2022-06-25 18:09 | disposition home or self-care (01) | DRG 192 ==
LOC: EC 11:48 → 4SSUR 20:26
PROVIDERS: ADMIT Internal Medicine; ATTEND Internal Medicine
DX: J43.9 Emphysema, unspecified (principal); E78.5 Hyperlipidemia, unspecified; I25.10 Atherosclerotic heart disease of native coronary artery without angina pectoris; Z79.82 Long term (current) use of aspirin; Z79.899 Other long term (current) drug therapy; Z85.3 Personal history of malignant neoplasm of breast; Z95.5 Presence of coronary angioplasty implant and graft; I10 Essential (primary) hypertension; R00.8 Other abnormalities of heart beat; I49.8 Other specified cardiac arrhythmias; R09.02 Hypoxemia; I48.91 Unspecified atrial fibrillation; L43.9 Lichen planus, unspecified; Z71.3 Dietary counseling and surveillance; Z20.822 Contact with and (suspected) exposure to COVID-19; I95.9 Hypotension, unspecified; Z80.9 Family history of malignant neoplasm, unspecified
CPT/HCPCS: 36415; 71046; 71275; 80048; 80053; 83605; 83735; 83880; 84145; 84484; 85025; 85379; 85610; 85730; 87040; 87070; 87205; 87449; 87636; 93005; 94640; 94760; 96361; 96365; 96375; 99285

== ENCOUNTER → 2022-12-02 | Outpatient (CLI) | payer MEDICARE, BC ==
--- NOTE | 2022-12-02 12:31 | XR ---
EXAMINATION TYPE: XR lumbar spine 2 or 3V DATE OF EXAM: 12/02/2022 CLINICAL HISTORY: Worsening low back pain. TECHNIQUE: Frontal and lateral images of the lumbar spine are obtained. COMPARISON: Prior lumbar spine x-ray June 22, 2021 FINDINGS: Diffuse Demineralization is redemonstrated. There are 5 lumbar type vertebral bodies redemo nstrated. The lumbar spine shows stable and satisfactory alignment without evidence of acute fractur e or dislocation. Vertebral body heights remain within normal limits. Mild to moderate disc space kian rowing and anterior spurring at L1-L2 level is redemonstrated. Overlying arterial vascular calcificat ion is again seen. Possible 3 to 4 mm calculus central right kidney at L2 level is again seen. IMPRESSION: As above. No significant change from prior.
--- NOTE | 2022-12-02 12:34 | XR ---
EXAMINATION TYPE: XR thoracic spine complete DATE OF EXAM: 12/02/2022 CLINICAL HISTORY: Increasing mid back pain. TECHNIQUE: Frontal, lateral, and swimmer's view of thoracic spine are obtained. COMPARISON: Prior thoracic spine x-ray June 22, 2021. FINDINGS: Thoracic spine show stable and satisfactory alignment without evidence of acute fracture or dislocation. Demineralization is redemonstrated. Vertebral body heights and disc space heights are preserved. Visualized ribs are intact bilaterally. IMPRESSION: As above. No significant change from prior.
== END | disposition home or self-care (01) ==
LOC: RADXRMAIN 11:06
PROVIDERS: ATTEND Internal Medicine Geriatric Medicine
DX: M46.07 Spinal enthesopathy, lumbosacral region (principal); M54.50 Low back pain, unspecified; M54.6 Pain in thoracic spine
CPT/HCPCS: 72072; 72100

== ENCOUNTER → 2022-12-16 | Outpatient (CLI) | payer MEDICARE, BC ==
--- NOTE | 2022-12-16 15:22 | US ---
EXAMINATION TYPE: US kidneys/renal and bladder DATE OF EXAM: 12/16/2022 COMPARISON: CT 2018, US 2018, XR 2022 CLINICAL INDICATION: Female, 77 years old with history of N20.0 KIDNEY STONE; Recent xray showed ston e. EXAM MEASUREMENTS: Right Kidney: 9.5 x 4.7 x 4.2 cm Left Kidney: 8.6 x 4.3 x 5.3 cm Right Kidney: Possible mild hydronephrosis. Lower medial pole cystic lesion = 4.2 x 4.0 x 3.9 cm Left Kidney: Solid lesion visualized superior to left kidney = 5.3 x 3.2 x 4.2 cm. Bladder: distended, anechoic Bilateral Jets seen Solid lesion visualized superior to left kidney = 5.3 x 3.2 x 4.2 cm. Urinary bladder is sonolucent. Posterior wall is normal. IMPRESSION: 1. Simple appearing inferior pole right renal cyst. 2. 5 cm mass superior to the left kidney. Additional workup with CT is recommended.
== END | disposition home or self-care (01) ==
LOC: RADUSWWP 13:32
PROVIDERS: ATTEND Internal Medicine Geriatric Medicine
DX: N20.0 Calculus of kidney (principal); N28.1 Cyst of kidney, acquired; N28.89 Other specified disorders of kidney and ureter
CPT/HCPCS: 76770

== ENCOUNTER → 2023-03-22 | Outpatient (CLI) | payer MEDICARE, BC ==
--- NOTE | 2023-03-22 13:12 | BD ---
EXAMINATION TYPE: Axial Bone Density DATE OF EXAM: 03/22/2023 CLINICAL HISTORY: 77 years old Female. ICD-10 CODE: M81.0 Osteoporosis Height: 5 ft 4 in Weight: 142 FRAX RISK QUESTIONS: Alcohol (3 or more units per day): no Family History (Parent hip fracture): no Glucocorticoids (More than 3mos): no (Ex: prednisone, prednisolone, methylprednisolone, dexamethasone, and hydrocortisone). History of Fracture in Adulthood: no Secondary Osteoporosis: 1. Type 1 Diabetes: no 2. Hyperthyroidism: no 3. Menopause before 45: no 4. Malnutrition: no 5. Chronic liver disease: no Rheumatoid Arthritis: yes Current Tobacco Use: no RISK FACTORS HISTORY OF: Surgery to Spine/Hip(right/left)/Wrist (right/left): no Family History of Osteoporosis: yes Active: yes Diet low in dairy products/other sources of calcium: no Postmenopausal woman: yes Take estrogen and/or progesterone medications: no Lost more than 2 inches in height since high school: no Frequent falls: no Poor Health: good Hyperparathyroidism: no Adrenal Insufficiency: no MEDICATIONS: Additional Medications: Rosuvastatin, citalopram, omeprazole, candesartan, amlodipine, alprazolam, ez etimibe, trazodone, donepezil, ropinirole, tramadol, hydrocodone Additional History: EXAM MEASUREMENTS: Bone mineral densitometry was performed using the gdgt System. Bone mineral density as measured about the Lumbar spine is: ----- L1-L4(G/cm2): 0.945 T Score Values are as follows: ----- L1: -2.1 ----- L2: -2.5 ----- L3: -1.9 ----- L4: -1.5 ----- L1-L4: -2.0 Z Score Values are as follows: ----- L1: -0.3 ----- L2: -0.7 ----- L3: -0.1 ----- L4: 0.3 ----- L1-L4: -0.1 Bone mineral density has: increased 1.4 % since study of: 2020 Bone mineral density about the R hip (g/cm2): 0.741 Bone mineral density about the L hip (g/cm2): 0.703 T Score values are as follows: -----R Neck: -2.1 -----L Neck: -2.4 -----R Total: -1.9 -----L Total: -2.2 Z Score values are as follows: -----R Neck: 0.0 -----L Neck: -0.3 -----R Total: 0.0 -----L Total: -0.3 Bone mineral density has: decreased -4.2 % since study of: 2020 FRAX%s: The graph provided illustrates a 25.8 % chance for a major osteoporotic fx and a 8.2 % chance for the hips probability for fx in 10 years time. IMPRESSION: Osteopenia (T Score between -2.5 and -1). There is slightly increased risk of fracture and the patient may be considered for treatment. Re-Screen 2-5 years. NOTE: T-SCORE=SD OF THE YOUNG ADULT MEAN.
--- NOTE | 2023-03-23 12:22 | MM ---
Reason for Exam: Screening (asymptomatic). Last mammogram was performed 1 year(s) and 4 month(s) ago. Patient History: Menarche at age 13. Patient has no children. Postmenopausal. Breast cancer, bilateral, age 56. Estrogen for 4 years from age 49 until age 53. Lumpectomy on the Left side. Core Biopsy on the Right side. Excisional Biopsy on the Left side. 04/26/2002, Malignant Lumpectomy on the right side. 04/12/2002, Malignant Ultrasound-Guided Core Biopsy on the right side. Radiation Therapy, right. Radiation Therapy, left. Chemotherapy. Prior Study Comparison: 06/22/2016 Bilateral Diagnostic Mammogram, [facility]. 06/27/2017 Bilateral Diagnostic Mammogram, [facility]. 08/27/2018 Bilateral Diagnostic Mammogram, [facility]. 10/07/2020 Bilateral Screening Mammogram, [facility]. 11/04/2021 Bilateral MG 3D screening mammo w/cad, [facility]. Tissue Density: The breast tissue is heterogeneously dense. This may lower the sensitivity of mammography. Findings: Analyzed By CAD. Postprocedural changes right breast with present. Deformity to the left nipple with retraction. Findings are unchanged from priors. There is no suspicious group of microcalcifications or new suspicious mass. Overall Assessment: Benign, BI-RAD 2 Management: Screening Mammogram of both breasts in [address] [facility] will attempt to contact patient to return for supplemental views and ultrasound if indicated. Patient should continue monthly self-breast exams. A clinical breast exam by your physician is recommended on an annual basis. This exam should not preclude additional follow-up of suspicious palpable abnormalities. Note on Araceli scores and lifetime risk: 1. A Araceli score greater than 3% is considered moderate risk. If this is the case, consider specialist referral to assess eligibility for a risk reducing agent. 2. If overall lifetime risk for the development of breast cancer is 20% or higher, the patient may qualify for future screening with alternating mammogram and breast MRI. Electronically signed and approved by: Kulwinder Milan DO
== END | disposition home or self-care (01) ==
LOC: RADMAMWWP 09:59
PROVIDERS: ATTEND Internal Medicine Geriatric Medicine
DX: Z12.31 Encounter for screening mammogram for malignant neoplasm of breast (principal); M81.0 Age-related osteoporosis without current pathological fracture; Z78.0 Asymptomatic menopausal state
CPT/HCPCS: 77063; 77067; 77080

== ENCOUNTER → 2023-03-23 | Outpatient (CLI) | payer MEDICARE, BC ==
--- NOTE | 2023-03-23 10:29 | MR ---
EXAMINATION TYPE: MR lumbar spine wo con DATE OF EXAM: 03/23/2023 COMPARISON: 12/02/2022 HISTORY: Low back pain with cramping into legs and feet TECHNIQUE: T1 and T2 axial and sagittal images of the lumbar spine are submitted. FINDINGS: There is no abnormal signal seen within the visualized spinal cord or paraspinal soft tissu es. Diffuse osteopenia. There is a benign-appearing cyst right kidney. Aorta of normal caliber. Small er simple left renal cysts. At L1-2 there is severe degenerative disc disease with discogenic marrow changes and broad-based cent ral mild effacement of thecal sac. At L2-3 there is disc desiccation and mild degenerative disc disease. Mild circumferential disc bulgi ng but no focal herniation. No canal stenosis or foraminal encroachment At L3-4 there is a mild degenerative disc disease. There is an annular tear but no focal herniation. Mild broad-based disc bulging with hypertrophic changes in the facets and ligamentum flavum. Underlyi ng borderline canal stenosis and mild bilateral foraminal encroachment. At L4-5 there is moderate degenerative disc disease with broad-based disc bulging, ligamentum flavum hypertrophy and facet arthropathy. Mild bilateral foraminal encroachment and mild central stenosis. At L5-S1 there is mild disc desiccation facet arthropathy. 3 mild central disc bulging but no focal h erniation or canal stenosis. Neural foramina remain patent. IMPRESSION: 1. Multilevel degenerative disc disease most marked at L1-L2 with severe degenerative disc disease. 2. Multilevel disc bulging with no focal herniation. Disc bulging in combination with hypertrophic ch anges results in borderline central stenosis L3-4 and mild central stenosis L4-5. 3. Multilevel mild bilateral foraminal encroachment.
== END | disposition home or self-care (01) ==
LOC: RADMRIMAIN 08:36
PROVIDERS: ATTEND Internal Medicine Geriatric Medicine
DX: M48.061 Spinal stenosis, lumbar region without neurogenic claudication (principal); M51.36 Other intervertebral disc degeneration, lumbar region; M51.26 Other intervertebral disc displacement, lumbar region
CPT/HCPCS: 72148

== ENCOUNTER → 2024-04-16 | Outpatient (CLI) | payer MEDICARE, BC ==
--- NOTE | 2024-04-20 17:26 | MM ---
Reason for Exam: Screening (asymptomatic). Last mammogram was performed 1 year(s) and 1 month(s) ago. Patient History: Menarche at age 13. Patient has no children. Postmenopausal. Breast cancer, bilateral, age 56. Previous chest radiation therapy at age 56. Previous chemotherapy at age 56. Estrogen for 4 years from age 49 until age 53. Lumpectomy on the Left side. Core Biopsy on the Right side. Excisional Biopsy on the Left side. 04/26/2002, Malignant Lumpectomy on the right side. 04/12/2002, Malignant Ultrasound-Guided Core Biopsy on the right side. Radiation Therapy, right. Radiation Therapy, left. Chemotherapy. Prior Study Comparison: 10/07/2020 Bilateral Screening Mammogram, [facility]. 11/04/2021 Bilateral MG 3D screening mammo w/cad, [facility]. 03/22/2023 Bilateral MG 3D screening mammo w/cad, [facility]. Tissue Density: The breasts are extremely dense, which lowers the sensitivity of mammography. Findings: Analyzed By CAD. The pattern is stable. Lumpectomy changes with surgical clips are on the right. Stable Distortion within the left breast. No suspicious groups of microcalcifications, spiculated or lobular masses, architectural distortion or other secondary signs of malignancy are mammographically apparent. Overall Assessment: Benign, BI-RAD 2 Management: Screening Mammogram of both breasts in 1 year. A negative mammogram report should not preclude additional follow up of suspicious palpable abnormalities. Patient should continue monthly self breast exam. A clinical breast exam by your physician is recommended on an annual basis and results should be correlated with mammographic findings. Note on Araceli scores and lifetime risk: 1. A Araceli score greater than 3% is considered moderate risk. If this is the case, consider specialist referral to assess eligibility for a risk reducing agent. 2. If overall lifetime risk for the development of breast cancer is 20% or higher, the patient may qualify for future screening with alternating mammogram and breast MRI. [facility], , 04/20/2024 5:24 PM. Electronically signed and approved by: Isaac Negro D.O. Radiologis
== END | disposition home or self-care (01) ==
LOC: RADMAMWWP 10:45
PROVIDERS: ATTEND Internal Medicine Geriatric Medicine
DX: Z12.31 Encounter for screening mammogram for malignant neoplasm of breast (principal); Z78.0 Asymptomatic menopausal state; Z80.3 Family history of malignant neoplasm of breast
CPT/HCPCS: 77063; 77067